=== PATIENT | male | born 1975 | race Hispanic/Latino ===

== ENCOUNTER 2017-08-30 15:53 | Inpatient (IN) | payer OTHER, SELFPAY ==
[~2017-08-30 15:53] MED LIST: Heparin 1,000 UNITS/ML VIAL ONE
[2017-08-30] MEDS ORDERED: Acetaminophen 325 MG TAB PO PRN (16:18)
[2017-08-30] MEDS ORDERED: HYDROcodone/Acetaminophen 5/325 mg Tablet PO PRN (16:18)
[2017-08-30] MEDS ORDERED: Ondansetron HCl/PF 4 MG/2 ML Vial IVP PRN (16:18)
[2017-08-30] MEDS ORDERED: Bisacodyl 5 MG TAB PO PRN (16:18)
[2017-08-30] MEDS ORDERED: Ondansetron ODT 4 MG TAB PO PRN (16:18)
[2017-08-30] MEDS ORDERED: Acetaminophen 650 MG Suppository PR PRN (16:18)
[2017-08-30] MEDS ORDERED: CEFAZOLIN 1 GM in Sodium Chloride 0.9% 100 ML IVPB SCH ×2 (16:30→22:00)
[2017-08-30] MEDS ORDERED: CEFAZOLIN 1 GM, Syringe 2.5 ML in Sterile Water 7.5 ML SLOW IVP SCH (16:45)
[2017-08-30 16:47] VITALS: BMI 37.3
[2017-08-30 16:52] LABS: #Eosinphils 0.2 thou/uL (0.0-0.7); #Lymphocytes 2.6 thou/uL (1.20-3.40); #Monocytes 0.6 thou/uL (0.11-0.59); %Basophils 0.7 % (0.0-1.0); %Eosinophils 2.6 % (0.0-10.0); %Lymphocytes 34.5 % (21.0-51.0); %Monocytes 8.1 % (0.0-10.0); %Neutrophils 54.1 % (42.0-75.0); Hemoglobin 14.1 g/dL (14.0-18.0); Mean Corpuscular HGB CONC 32.3 g/dL (32.0-36.0); Mean Corpuscular Hemoglobin 27.9 pg (27.0-31.0); Mean Corpuscular Volume 86.6 fl (80.0-94.0); Mean Platelet Volume 7.5 fL (7.4-10.4); Platelet Count 504 thou/uL (130-400); RBC Distribution Width 12.8 % (11.5-14.5); Red Blood Cell (RBC) Count 5.05 mill/uL (4.70-6.10); White Blood Cell (WBC) Count 7.4 thou/uL (4.8-10.8)
[2017-08-30 17:11] LABS: ALT (SGPT) 36 U/L (8-55); AST (SGOT) 23 U/L (5-34); Albumin 4.2 g/dL (3.5-5.0); Alkaline Phosphatase 183 U/L (40-150); Anion Gap 14 mmol/L (10-20); BUN (Urea Nitrogen) 21 mg/dL (8.9-20.6); Bilirubin, Total 0.4 mg/dL (0.2-1.2); Calc. Creatinine Clearance 155 mL/min (70-130); Calcium 9.9 mg/dL (7.8-10.44); Carbon Dioxide 24 mmol/L (22-29); Chloride 104 mmol/L (98-107); Estimated GFR-MDRD 81; Globulin 4.8 g/dL (2.4-3.5); Glucose 93 mg/dL (70-105); Sodium 138 mmol/L (136-145)
[2017-08-30 18:17] LABS: HBCM Index 0.09 S/CO (0-0.79); HBSAg Index 0.17 S/CO (0-0.99); Hep A IgM AB Non-Reactive (NonReactive); Hep A IgM S/CO 0.09 S/CO (0-0.79); Hep B Surf Ag Non-Reactive S/CO (NonReactive); Hep C IgG Ab Non-Reactive (NonReactive); Hep C Index 0.09 S/CO (0-0.79); Hepatitis B Core IGM Abs Non-Reactive (NonReactive)
--- NOTE | 2017-08-30 19:37 | MRI ---
MRI THORACIC SPINE NONCONTRAST: 08/30/17 HISTORY: Bacteremia, back pain. FINDINGS: Centered at the T7 and T8 segments, there is abnormal marrow edema, diffusely involving the vertebral bodies. There is no intervening disc space fluid. No significant, associated mass effect upon the th oracic spinal cord at this level. There is limited evaluation for potential epidural abscess by nonco ntrast technique, although no obvious space occupying epidural process is identified within the limit ations of noncontrast technique. There is paraspinus soft tissue edema, notably about the anterior as pect of the spinal column. There are multifocal subcentimeter T2 hyperintensities along the periphera l confines of the abnormal T7 and T8 vertebral bodies favoring microabscess formation, although limit ed by technique. Incomplete assessment of the narrow edema centered at the superior aspect of C7. Incidental note of patchy alveolar opacity of the medial right lung, incompletely evaluated. No abnormal intrinsic, expansile lesion of the thoracic spinal cord. No definite intramedullary signa l abnormality is identified. Mild multilevel degenerative change of thoracic spine present with mild resultant effacement of ventral thecal sac due to multilevel disc bulge formation. There is intrinsic T1 hyperintensity of T5 vertebral body, which may relate to a small hemangioma. IMPRESSION: Findings compatible with osteomyelitis at the T7 and T8 segments. No intervening disc space fluid pre sent. No obvious epidural mass effect although evaluation for potential developing epidural abscess i s limited by noncontrast technique. There are multifocal paraspinous, subcentimeter T2 hyperintensiti es favoring microabscess formation, notably about the peripheral confines of the abnormal marrow sign al of T7 and T8 vertebral bodies. There is also paraspinous edema. Abnormal patchy alveolar opacity of the medial right lung is incompletely assessed. Incidental note of T2 hyperintensity of the superior aspect of C7 incompletely evaluated. POS: [facility]
--- NOTE | 2017-08-30 19:44 | MRI ---
LUMBAR SPINE MRI NONCONTRAST: 08/30/17 CLINICAL HISTORY: Bacteremia, back pain. FINDINGS: No acute marrow edema of lumbar spine. No compression deformity or subluxation. No acute disc space e neri/fluid. Conus medullaris is grossly unremarkable. There are foci of susceptibility at the posteri or subcutaneous tissues of the lower lumbar spine. Multilevel disc osteophyte/disc bulge formation pr esent. There is no motion artifact which limits assessment. There is congenital AP diameter narrowing of the mid to lower lumbar spine due to shortened pedicles with an overall moderate multilevel centr al canal stenosis. Neural foramina are somewhat obscured by the patient motion although there is sugg estion of multilevel mild to moderate foraminal narrowing on the basis of degenerative change. Multil evel degenerative facet hypertrophy is present. IMPRESSION: 1. No noncontrast MR evidence of osteomyelitis or discitis of the lumbar spine. 2. 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 Degenerative changes are mild to moderate in degree, although are limited by the degre e of patient motion. POS: [facility]
--- NOTE | 2017-08-30 21:47 | HP ---
PRIMARY CARE PHYSICIAN: Roman Newby. CHIEF COMPLAINT: Back pain and bacteremia. HISTORY OF PRESENT ILLNESS: This is a 42-year-old male without significant past medical his tory who presents with a 3-4 week history of mid back pain. He reports that in the middle of July, he woke up with this pain, went into his primary care doctor's office, had a temperature of 100.7 at that time and was put on pain medications. The pain continued to be bad. He has had some chills and felt febrile. The patient eventually went into the emergency room in [place] on 08/13/2017 about 1 7 days ago. At that time, the patient was given Toradol and pain medications for his back. He did s pike a fever to 102 in the emergency room, they did a CT of the chest with contrast at that time. Th is noted a mild right pleural effusion, but no other findings. There were no osseous structures abno rmalities. The patient had blood cultures drawn, was noted to have a white blood cell count about 10 ,000 and some elevations in AST, ALT, alkaline phosphatase. He was sent home with pain medications. Blood cultures did eventually grow back MSSA, pansensitive staph. He was scripted for clindamycin 3 times a day for 7 days was called into him and he will follow up with his primary care doctor. Due to the pleural effusion, the patient did have a referral down to a merchant seaman in the [facility] yesterday. He had an x-ray done there and determined that he did not have a signif icant pulmonary disease causing this problem. He was then referred to Dr. Torres. He saw Dr. Brian canas n the clinic today and Dr. Torres sent him over for direct admission. PAST MEDICAL HISTORY: None. PAST SURGICAL HISTORY: 1. Carpal tunnel surgery. 2. Right L3-L4 hemilaminectomy and diskectomy done in 2012. SOCIAL HISTORY: The patient has smoked a pack per day for the last 22 years. He used to drink alcoh ol heavily until about 11 to 12 years ago. He drinks just 1-2 beers about once or twice a month now. He does intermittently use amphetamines. Orally, he has never used any IV drugs. He lives with ak s girlfriend to 15 years and with his father who is significantly disabled from diabetes. PSYCHIATRIC HISTORY: The patient does report some stress and depression, but no past psychiatric irena gnoses. FAMILY HISTORY: Multiple family members with diabetes and hypertension. No history of heart disease or immune problems. ALLERGIES: Unknown allergy pill from years ago. No other known allergies. MEDICATIONS: An [id number] pain medication that he gets from some friends from [place]. No oth er regular medications. No antibiotics for 1 week. REVIEW OF SYSTEMS: Constitutional: Fevers and chills initially, after he had a course of clindamyci n he has not had any more fevers. Eyes: No double vision or blurred vision. ENT: No congestion, d rainage or sore throat. Pulmonary: He has a chronic intermittent cough from smoking that does not a ny worse recently, nonproductive of sputum. He has had no trouble breathing or wheezing. Cardiovasc ular: No chest pain, no palpitations or racing heart. Gastrointestinal: The patient has had some b ilateral right and left upper quadrant pain, sharp, on and off, not they are consistently, seemed to be worse right at the initial time of this back pain and fever. No nausea or vomiting, no diarrhea o r constipation. He has had some intermittent blood with his bowel movements that is bright red for t he past few years. Genitourinary: No dysuria or hematuria. Musculoskeletal: The patient does have the back pain, it is more lateral, right and left side down near the lower side and his ribcage, wor se with some positions and movement, but it is intermittent, seems better with the medicine he has be en taking over the counter. No other muscle aches or joint pains. Skin: No rashes or lesions noted . Neurologic: He has some bilateral fingertip numbness and tingling when he first got sick, this is resolved and he has not had any more since then. No other focal neurologic symptoms that he has had . PHYSICAL EXAMINATION: VITAL SIGNS: Blood pressure 144/91, temperature 98.2, pulse 100, respirations 18, O2 saturation 98% on room air. GENERAL: This is a well-developed, obese male in no apparent distress. HEENT: Pupils are equal, round, and reactive to light. Extraocular movements are intact. Oropharyn x is clear without lesions, erythema or exudate. NECK: Supple, no lymphadenopathy, no thyroid nodules or enlargement, no JVD. HEART: Regular rate and rhythm, no murmurs, rubs or gallops. LUNGS: Clear to auscultation bilaterally, no wheezes, crackles or rhonchi. MUSCULOSKELETAL: No tenderness to palpation of his ribcage even over the areas where he has the pain in his back. ABDOMEN: Soft, mild tenderness to palpation in bilateral upper quadrants, worse over his liver. Neg ative Obrien sign. No organomegaly or masses. Normoactive bowel sounds. EXTREMITIES: No clubbing, cyanosis or edema. SKIN: No rashes or lesions noted. NEUROLOGIC: Deep tendon reflexes 2+ in all extremities and sensation intact in all extremities, has 5/5 strength in all extremities and no facial droop. LABORATORY DATA: Done just now in the hospital. A CBC is normal except for platelet count of 500,00 0. Complete metabolic panel was notable for a BUN of 21 and alkaline phosphatase of 183. Serum tota l protein of 9. The rest of his LFTs have actually normalized since his last visit. His C-reactive protein is elevated at 1.62. ASSESSMENT AND PLAN: 1. Methicillin-sensitive Staphylococcus aureus bacteremia. The differential for sources of this is large, most likely candidates that would be endocarditis or spinal infection given his back pain. Th is could be radicular symptoms coming from a problem in his thoracic spine. We will repeat blood cul tures here today and then start Ancef 2 grams IV 3 times a day. We will also get an MRI of the T and L spines and an echocardiogram and start the workup. Dr. Torres will see the patient in the hospital and we will follow any further recommendations that he has for workup and treatment here. The patie nt will eventually need a PICC line once his blood is no longer positive for bacteria. 2. Obesity. 3. Elevated blood pressure. We will monitor these in the hospital, it is possible that he does have some early hypertension and may need treatment. 4. Elevated liver function tests. These are actually mostly resolved now. Uncertain etiology, thou gh it may be related more to bony involvement of an infection with his alkaline phosphatase elevation . Given his tenderness in the right upper quadrant, though I will go ahead and get an ultrasound of his liver and will check viral hepatitis panels. 5. Gastrointestinal prophylaxis. We will put the patient is on Pepcid twice a day. 6. Deep venous thrombosis prophylaxis. We will put the patient on sequential compression devices an d Shereenox. CODE STATUS: I did discuss this with the patient and he stated he is a FULL CODE. Should he be inca pacitated, he stated that his aunt, no one to make medical decisions for him that would be, her name is Ibis Payan, she is his paternal aunt.
[2017-08-30] MEDS ORDERED: CEFAZOLIN 2 GM in Sodium Chloride 0.9% 100 ML IVPB SCH (22:00)
[2017-08-30] MEDS: Famotidine 20 MG TAB PO SCH (22:19)
[2017-08-30] MEDS: CEFAZOLIN/Water 2 GM/20 ML SYRINGE SLOW IVP SCH (22:20)
[2017-08-30] MEDS: Docusate 100 MG CAP PO SCH (22:20)
[2017-08-30] MEDS: HYDROcodone/Acetaminophen 5/325 mg Tablet PO PRN (22:23)
[2017-08-31] MEDS: HYDROcodone/Acetaminophen 5/325 mg Tablet PO PRN ×4 (07:06→21:10)
[2017-08-31] MEDS: CEFAZOLIN/Water 2 GM/20 ML SYRINGE SLOW IVP SCH ×3 (07:07→21:11)
[2017-08-31 07:56] LABS: #Basophils 0.1 thou/uL (0.0-0.2); #Eosinphils 0.3 thou/uL (0.0-0.7); #Lymphocytes 2.5 thou/uL (1.20-3.40); #Monocytes 0.5 thou/uL (0.11-0.59); #Neutrophils 2.8 thou/uL (1.40-6.50); %Basophils 0.9 % (0.0-1.0); %Eosinophils 4.4 % (0.0-10.0); %Lymphocytes 41.4 % (21.0-51.0); %Monocytes 8.1 % (0.0-10.0); %Neutrophils 45.2 % (42.0-75.0); Hemoglobin 13.4 g/dL (14.0-18.0); Mean Corpuscular HGB CONC 30.8 g/dL (32.0-36.0); Mean Corpuscular Hemoglobin 27.1 pg (27.0-31.0); Platelet Count 445 thou/uL (130-400); RBC Distribution Width 12.8 % (11.5-14.5); Red Blood Cell (RBC) Count 4.94 mill/uL (4.70-6.10); White Blood Cell (WBC) Count 6.1 thou/uL (4.8-10.8)
--- NOTE | 2017-08-31 07:56 | ULT ---
RIGHT UPPER QUADRANT ULTRASOUND: HISTORY: Right upper quadrant pain, tenderness, increased LFTs, right flank pain. FINDINGS: The liver demonstrates increased echogenicity consistent with fatty infiltration. No focal mass or i ntrahepatic ductal dilatation is seen. No gallstones, gallbladder wall thickening, or pericholecysti c fluid is identified. The common duct measures 4 mm in diameter. The pancreas is not satisfactoril y visualized due to overlying bowel gas. The right kidney is unremarkable. No free fluid is seen in the Morison's pouch. IMPRESSION: 1. Fatty liver. 2. No evidence of cholelithiasis. POS: [facility]
[2017-08-31 08:13] LABS: Anion Gap 13 mmol/L (10-20); BUN (Urea Nitrogen) 18 mg/dL (8.9-20.6); Calc. Creatinine Clearance 184 mL/min (70-130); Calcium 9.4 mg/dL (7.8-10.44); Carbon Dioxide 26 mmol/L (22-29); Chloride 103 mmol/L (98-107); Estimated GFR-MDRD Greater than 90; Glucose 82 mg/dL (70-105); Potassium 3.9 mmol/L (3.5-5.1); Sodium 138 mmol/L (136-145)
[2017-08-31] MEDS: Enoxaparin Sodium 40 MG/0.4 ML SYRINGE SC SCH (09:07)
[2017-08-31] MEDS: Famotidine 20 MG TAB PO SCH ×2 (09:07→21:10)
[2017-08-31] MEDS: Docusate 100 MG CAP PO SCH ×2 (09:07→21:10)
[2017-08-31] MEDS ORDERED: Eucerin (Mineral Oil/Petrolatum,White) 30 gm Jar TOP PRN (09:18)
[2017-08-31] MEDS ORDERED: Mag-Al 1200 mg/1200 mg/30 ML UDCUP PO PRN (09:18)
[2017-08-31] MEDS ORDERED: Artificial Tears 18 DROP/0.9 ML EA EYE PRN (09:18)
[2017-08-31] MEDS ORDERED: Temazepam 15 MG CAP PO PRN (09:18)
[2017-08-31] MEDS ORDERED: Chloraseptic Spray 180 ml Bottle PO PRN (09:18)
[2017-08-31] MEDS ORDERED: Sodium Chloride 0.65% Nasal 44 ML BOT EA NARE PRN (09:18)
[2017-08-31] MEDS ORDERED: Milk Of Magnesia 30 ML UDCUP PO PRN (09:18)
[2017-08-31] MEDS ORDERED: hydrALAZINE 20 MG/ML VIAL SLOW IVP PRN (09:18)
[2017-08-31] MEDS ORDERED: Loperamide HCl 2 MG CAP PO PRN (09:18)
[2017-08-31] MEDS ORDERED: Diabetic Tussin 200 MG/10 ML UDCUP PO PRN (09:18)
[2017-08-31] MEDS ORDERED: Loratadine 10 MG TAB PO PRN (09:18)
--- NOTE | 2017-08-31 09:19 | PDOC.PN ---
- Subjective Encounter Start Date: 08/31/17 Encounter Start Time: 10:00 -: old records requested/rev Patient seen and examined. No new complaints. No overnight events has upper back pain - Objective Resuscitation Status: Resuscitation Status FULL:Full Resuscitation MAR Reviewed: Yes Vital Signs & Weight: Vital Signs (12 hours) Temp Pulse Resp BP Pulse Ox 08/31/17 07:28 97.8 F 79 16 138/91 H 98 08/31/17 04:00 98.4 F 70 18 131/84 99 08/31/17 00:00 98.4 F 87 16 129/80 98 Weight Weight 253 lb Result Diagrams: 08/31/17 03:30 08/31/17 03:30 Radiology Reviewed by me: Yes (MRI) Phys Exam - Physical Examination Constitutional: NAD HEENT: PERRLA, moist MMs, sclera anicteric Neck: no JVD, supple Respiratory: no wheezing, no rales, no rhonchi Cardiovascular: RRR, no significant murmur, no rub Gastrointestinal: soft, non-tender, no distention, positive bowel sounds Musculoskeletal: no edema, pulses present Neurological: non-focal, normal sensation Lymphatic: no nodes Psychiatric: normal affect Skin: no rash, normal turgor Dx/Plan (1) Bacteremia due to methicillin susceptible Staphylococcus aureus (MSSA) Code(s): R78.81 - BACTEREMIA Status: Acute (2) Osteomyelitis of thoracic spine Code(s): M46.24 - OSTEOMYELITIS OF VERTEBRA, THORACIC REGION Status: Acute (3) Obesity (BMI 30-39.9) Code(s): E66.9 - OBESITY, UNSPECIFIED Status: Chronic - Plan cont current plan of care, continue antibiotics, social sciences research scientist * continue cefazolin * echo will be done today * neurosurgeon consult * ID consulted * will need PICC line and long tern IV antibiotics * will need brace * medication reviewed as below * symptomatic treatment. Review of Systems - Review of Systems Eyes: negative: Pain, Vision Change, Conjunctivae Inflammation, Eyelid Inflammation, Redness, Other ENT: negative: Ear Pain, Ear Discharge, Nose Pain, Nose Discharge, Nose Congestion, Mouth Pain, Mouth Swelling, Throat Pain, Throat Swelling, Other Respiratory: negative: Cough, Dry, Shortness of Breath, Hemoptysis, SOB with Excertion, Pleuritic Pain, Sputum, Wheezing Cardiovascular: negative: chest pain, palpitations, orthopnea, paroxysmal nocturnal dyspnea, edema, light headedness, other Gastrointestinal: negative: Nausea, Vomiting, Abdominal Pain, Diarrhea, Constipation, Melena, Hematochezia, Other Musculoskeletal: Back Pain. negative: Neck Pain, Shoulder Pain, Arm Pain, Hand Pain, Leg Pain, Foot Pain, Other Skin: negative: Rash, Lesions, Danielito, Bruising, Other - Medications/Allergies Allergies/Adverse Reactions: Allergies Allergy/AdvReac Type Severity Reaction Status Date / Time No Known Allergies Allergy Unverified 01/22/13 11:05 Medications: Current Medications Acetaminophen (Tylenol) 650 mg PO Q4H PRN PRN Reason: Headache/Fever or Pain Acetaminophen (Tylenol) 650 mg NH Q4H PRN PRN Reason: Headache/Fever or Pain Hydrocodone Bitart/Acetaminophen (Gwynn 5/325) 1 tab PO Q4H PRN PRN Reason: Moderate Pain (4-6) Hydrocodone Bitart/Acetaminophen (Gwynn 5/325) 2 tab PO Q4H PRN PRN Reason: Severe Pain (7-10) Last Admin: 08/31/17 07:06 Dose: 2 tab Bisacodyl (Dulcolax) 10 mg PO DAILYPRN PRN PRN Reason: Constipation Cefazolin Sodium (Ancef) 2 gm SLOW IVP Q8HR [facility] Last Admin: 08/31/17 07:07 Dose: 2 gm Docusate Sodium (Colace) 100 mg PO BID [facility] Last Admin: 08/31/17 09:07 Dose: 100 mg Enoxaparin Sodium (Lovenox) 40 mg SC 0900 [facility] Last Admin: 08/31/17 09:07 Dose: 40 mg Famotidine (Pepcid) 20 mg PO BID [facility] Last Admin: 08/31/17 09:07 Dose: 20 mg Ondansetron HCl (Zofran Odt) 4 mg PO Q6H PRN PRN Reason: Nausea/Vomiting Ondansetron HCl (Zofran) 4 mg IVP Q6H PRN PRN Reason: Nausea/Vomiting
--- NOTE | 2017-08-31 12:05 | CT ---
CT THORACIC SPINE: TECHNIQUE: Axial images are obtained with coronal and sagittal reconstructions. FINDINGS: CT images demonstrate areas of some lucency with destruction of the inferior end plate of T7 anterior ly. There is also some slight irregularity involving the superior end plate of T8 again anteriorly. This correlates with the patient's marrow signal changes seen in the T7 and T8 vertebral levels. No significant evidence of pedicle or posterior element abnormality seen. No significant evidence of s ignificant central posterior osteophyte seen in the thoracic spine. Anterior and somewhat lateral mi d and lower thoracic osteophyte seen. IMPRESSION: Areas of end plate breakdown at the inferior anterior aspect of T7 and anterior superior aspect of th e T8 vertebral levels. POS: [facility]
--- NOTE | 2017-08-31 16:16 | PRG ---
DATE OF SERVICE: 08/31/2017 This is a 30-minute initial hospital visit note in which 30 minutes were spent in review of the imagi ng record, evaluation and examination of patient, and formulation of a plan. Greater than 50% of the time was spent in counseling on Mr. Emmanuel Briones. CHIEF COMPLAINT: T7-T8 osteomyelitis, Staphylococcus. SUBJECTIVE: Mr. Briones is a 42-year-old man known to me approximately 5 years ago. I did a lumbar d ecompression. He did well following this; however, he presented with mid thoracic pain. MRI demonst rates edema in the vertebral bodies at T7-T8 with very mild inferior of T7 and superior T8 endplate l oss. CT confirms this with some erosion. There is no epidural abscess. Lumbar spine imaging MRI is unremarkable. OBJECTIVE: On exam, he is neurologically intact. IMPRESSION AND PLAN: For the patient, the treatment here will be a TLSO clamshell brace, which we wi ll order and this should be worn whenever he is out of bed, likely for the next 6-12 weeks. He will continue with guided antibiotics based on the microbe and we will arrange follow up in my clinic in 6 weeks with upright AP and lateral thoracic spine x-rays. DIAGNOSIS: Mid thoracic osteomyelitis.
[2017-08-31 19:36] VITALS: TEMP 97.8
--- NOTE | 2017-08-31 23:08 | CON ---
DATE OF CONSULTATION: 08/31/2017 This is a followup note from clinic visit. HISTORY OF PRESENT ILLNESS: A 42-year-old gentleman who has a history of prior lumbosacral laminecto my in the past and showed up in my clinic referred from another doctor's office because of Staphyloco ccus aureus bacteremia, which was identified about 10 days before his visit to my office, had been pr escribed clindamycin. On arrival, he complained of quite significant pain in the lower mid thoracic region with radiculopathic spread towards the anterior parts of the chest and upper abdomen associate d with general malaise, myalgias, symptoms had improved somewhat after he started clindamycin. No he adaches, no visual symptoms, sore throat, odynophagia, dysphagia. No skin disorder. No abdominal pa in, no diarrhea, no hematemesis, melena, hematochezia. No joint symptoms outside the area of involve ment. PAST MEDICAL HISTORY: Does not show any significant findings except for the prior lumbosacral spine treatment with I believe was a laminectomy. ALLERGIES: His allergy history is negative. 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 Lives close to [place]. Never smoker, no drug use. FAMILY HISTORY: Noncontributory. CURRENT MEDICATIONS: Tylenol, [place], Maalox, cefazolin 2 grams q.8 hours, hydralazine, and ondansetr on. PHYSICAL EXAMINATION: VITAL SIGNS: T-max 98.4, blood pressure 130/90, pulse 79, respirations 16, O2 sat 98%. SKIN: Normal. No lymphadenopathy. HEENT: Noncontributory. LUNGS: Clear. HEART: S1, S2, regular rate and rhythm without murmurs. ABDOMEN: Soft, not distended or tender, no ascites. No bladder distention. Mild tenderness in the mid thoracic spine area. EXTREMITIES: No joint inflammatory activity. No edema. Pulses 1+ in dorsalis pedis. Moves all ext remities equally. NEUROLOGIC: Cognitive function appears to be intact. LABORATORY DATA: White cell count 7.4, hemoglobin 14, platelets 504 with normal differential and cre atinine 1.01. CRP 1.62, albumin 4.2. Thoracic spine MRI, abnormal marrow edema diffusely involving the vertebral bodies, no disk space fluid, no mass effect, no obvious space occupying epidural proces s identified. There is evidence of paraspinous soft tissue edema, multifocal subcentimeter, T2 hyper intensities along peripheral confines of the vertebral bodies. The patient has thoracic spine CT, wh ich showed areas of endplate breakdown in the inferior anterior aspect of T7, anterior superior aspec t of T8 vertebral bodies. Dr. Clements has evaluated the patient. ASSESSMENT: Staph aureus bacteremia with thoracic spine osteomyelitis with T7 and T8 diskitis. The patient will be transitioned to Rocephin for discharge planning 2 grams daily for 6-8 weeks, probably 8 weeks. We have to arrange with case planner since he does not have insurance, will probably have to come daily to the hospital here for administration of medication. PICC line insertion. Check 2D echocardiogram.
[2017-09-01] MEDS: CEFAZOLIN/Water 2 GM/20 ML SYRINGE SLOW IVP SCH ×2 (05:32→15:13)
[2017-09-01] MEDS: HYDROcodone/Acetaminophen 5/325 mg Tablet PO PRN ×2 (05:35→13:34)
[2017-09-01 07:50] VITALS: BP 154/92
[2017-09-01 07:55] LABS: Prothrombin Time 13.3 SEC (12.0-14.7)
[2017-09-01] MEDS: Docusate 100 MG CAP PO SCH (08:49)
[2017-09-01] MEDS: Enoxaparin Sodium 40 MG/0.4 ML SYRINGE SC SCH (08:49)
[2017-09-01] MEDS: Famotidine 20 MG TAB PO SCH (08:49)
--- NOTE | 2017-09-01 10:59 | PDOC.PN ---
- Subjective Encounter Start Date: 09/01/17 Encounter Start Time: 08:00 Patient seen and examined. No new complaints. No overnight events - Objective Resuscitation Status: Resuscitation Status FULL:Full Resuscitation MAR Reviewed: Yes Vital Signs & Weight: Vital Signs (12 hours) Temp Pulse Resp BP Pulse Ox 09/01/17 08:00 97.8 F 73 20 96 09/01/17 07:50 97.8 F 73 20 154/92 H 90 L Weight Weight 253 lb I&O: 08/31/17 09/01/17 09/02/17 06:59 06:59 06:59 Intake Total 1780 200 Balance 1780 200 Result Diagrams: 08/31/17 03:30 08/31/17 03:30 Phys Exam - Physical Examination Constitutional: NAD HEENT: PERRLA, moist MMs, sclera anicteric Neck: no JVD, supple Respiratory: no wheezing, no rales, no rhonchi Cardiovascular: RRR, no significant murmur, no rub Gastrointestinal: soft, non-tender, no distention, positive bowel sounds Musculoskeletal: no edema, pulses present Neurological: non-focal, normal sensation, moves all 4 limbs Lymphatic: no nodes Psychiatric: normal affect, A&O x 3 Skin: no rash, normal turgor Dx/Plan (1) Bacteremia due to methicillin susceptible Staphylococcus aureus (MSSA) Code(s): R78.81 - BACTEREMIA Status: Acute (2) Osteomyelitis of thoracic spine Code(s): M46.24 - OSTEOMYELITIS OF [place], THORACIC REGION Status: Acute (3) Obesity (BMI 30-39.9) Code(s): E66.9 - OBESITY, UNSPECIFIED Status: Chronic - Plan cont current plan of care, continue antibiotics, psychosocial rehabilitation counselor * continue IV rocephin after discharge as per ID * currently on cefazolin * medication reviewed as below * symptomatic treatment * today PICC line * social work for outpt IV antibiotics. Review of Systems - Review of Systems Constitutional: negative: fever, chills, sweats, weakness, malaise, other Eyes: negative: Pain, Vision Change, Conjunctivae Inflammation, Eyelid Inflammation, Redness, Other ENT: negative: Ear Pain, Ear Discharge, Nose Pain, Nose Discharge, Nose Congestion, Mouth Pain, Mouth Swelling, Throat Pain, Throat Swelling, Other Respiratory: negative: Cough, Dry, Shortness of Breath, Hemoptysis, SOB with Excertion, Pleuritic Pain, Sputum, Wheezing Cardiovascular: negative: chest pain, palpitations, orthopnea, paroxysmal nocturnal dyspnea, edema, light headedness, other Gastrointestinal: negative: Nausea, Vomiting, Abdominal Pain, Diarrhea, Constipation, Melena, Hematochezia, Other Genitourinary: negative: Dysuria, Frequency, Incontinence, Hematuria, Retention , Other Musculoskeletal: Back Pain. negative: Neck Pain, Shoulder Pain, Arm Pain, Hand Pain, Leg Pain, Foot Pain, Other Skin: negative: Rash, Lesions, Danielito, Bruising, Other Neurological: negative: Weakness, Numbness, Incoordination, Change in Speech, Confusion, Seizures, Other - Medications/Allergies Allergies/Adverse Reactions: Allergies Allergy/AdvReac Type Severity Reaction Status Date / Time No Known Allergies Allergy Unverified 01/22/13 11:05 Medications: Current Medications Acetaminophen (Tylenol) 650 mg PO Q4H PRN PRN Reason: Headache/Fever or Pain Acetaminophen (Tylenol) 650 mg GA Q4H PRN PRN Reason: Headache/Fever or Pain Hydrocodone Bitart/Acetaminophen ([place] 5/325) 1 tab PO Q4H PRN PRN Reason: Moderate Pain (4-6) Hydrocodone Bitart/Acetaminophen ([place] 5/325) 2 tab PO Q4H PRN PRN Reason: Severe Pain (7-10) Last Admin: 09/01/17 05:35 Dose: 2 tab Al Hydroxide/Mg Hydroxide (Maalox) 15 ml PO Q4H PRN PRN Reason: Heartburn or Indigestion Artificial Tears (Tears Naturale) 0 drop EA EYE PRN PRN PRN Reason: Dry Eyes Bisacodyl (Dulcolax) 10 mg PO DAILYPRN PRN PRN Reason: Constipation Cefazolin Sodium (Ancef) 2 gm SLOW IVP Q8HR [facility] Last Admin: 09/01/17 05:32 Dose: 2 gm Docusate Sodium (Colace) 100 mg PO BID [facility] Last Admin: 09/01/17 08:49 Dose: 100 mg Enoxaparin Sodium (Lovenox) 40 mg SC 0900 [facility] Last Admin: 09/01/17 08:49 Dose: Not Given Famotidine (Pepcid) 20 mg PO BID [facility] Last Admin: 09/01/17 08:49 Dose: 20 mg Guaifenesin (Robitussin Sf) 200 mg PO Q4H PRN PRN Reason: Cough Hydralazine HCl (Apresoline) 10 mg SLOW IVP Q4H PRN PRN Reason: Systolic BP > 180 Loperamide HCl (Imodium) 2 mg PO PRN PRN PRN Reason: Diarrhea/Loose Stools Loratadine (Claritin) 10 mg PO DAILYPRN PRN PRN Reason: Sinus Symptoms Magnesium Hydroxide (Milk Of Magnesium) 30 ml PO DAILYPRN PRN PRN Reason: Constipation Mineral Oil/White Petrolatum (Eucerin Cream) 0 gm TOP BIDPRN PRN PRN Reason: Dry Skin Ondansetron HCl (Zofran Odt) 4 mg PO Q6H PRN PRN Reason: Nausea/Vomiting Ondansetron HCl (Zofran) 4 mg IVP Q6H PRN PRN Reason: Nausea/Vomiting Phenol (Chloraseptic [place] 180 Ml Bot) 0 ml PO PRN PRN PRN Reason: Sore Throat Sodium Chloride (Magazine Nasal [place] 0.65%) 0 ml EA NARE QIDPRN PRN PRN Reason: Nasal Congestion Sodium Chloride (Flush - Normal Saline) 10 ml IVF Q12HR [facility] Last Admin: 09/01/17 08:49 Dose: 10 ml Sodium Chloride (Flush - Normal Saline) 10 ml IVF PRN PRN PRN Reason: Saline Flush Temazepam (Restoril) 15 mg PO HSPRN PRN PRN Reason: Insomnia
--- NOTE | 2017-09-01 11:34 | SPC ---
PICC PLACEMENT ULTRASOUND GUIDED VENOUS ACCESS: (Peripherally Inserted Central Catheter) DATE: 09/01/17. HISTORY: A 42-year-old male with infectious spondylitis of the thoracic spine: diskitis-osteomyelitis, requiri ng long-term IV antibiotics. TECHNIQUE: Catheter caliber: 5 Lao. Catheter trim length: 43.5 cm. Catheter lumen number: single. Catheter tip location: lower portion of superior vena cava. Vein accessed: left brachial. Signed, informed consent was obtained. A tourniquet was applied at the proximal aspect of the arm. The arm was prepared and draped in the usual sterile fashion. A 25 gauge needle was used to apply bu ffered lidocaine superficially. The vein was punctured with a 21 gauge micropuncture needle under ul trasound guidance. A 0.018 inch guide wire was advanced through the micropuncture needle and into th e vein. Under fluoroscopic guidance, the guide wire was advanced to the right atrium. The PICC (per ipherally inserted central catheter) was flushed and trimmed to the appropriate length. The skin pun cture hole was widened with a blade. The micropuncture needle was exchanged over the guide wire for a 5 Lao peel-away dilator sheath. The dilator was exchanged over the guide wire for the PICC, whi ch was then further advanced under fluoroscopy. The sheath and guide wire were removed. The PICC wa s flushed again and secured in place at the arm. The patient tolerated the procedure well. There wa s no complication. IMPRESSION: Successful placement of PICC (peripherally inserted central catheter) reagan [] POS: UBALDO
--- NOTE | 2017-09-01 15:41 | DIS ---
DATE OF ADMISSION: 08/30/2017 DATE OF DISCHARGE: 09/01/2017 PRIMARY CARE PHYSICIAN: Roman Newby M.D. DISCHARGE DISPOSITION: Home. PRIMARY DISCHARGE DIAGNOSIS: Bacteremia due to methicillin-sensitive Staphylococcus aureus osteomyel itis of thoracic spine. SECONDARY DISCHARGE DIAGNOSIS: Obesity. PRIMARY PROCEDURE/OPERATION: PICC line. RADIOLOGICAL INVESTIGATION: Lumbar spine MRI was fine. Thoracic spine MRI showed osteomyelitis of T 7-T[address] spine[address] scan showed endplate breakdown at the inferior anterior aspect of T7 and T8. Abdominal ultrasound showed fatty liver. SIGNIFICANT LABORATORY DATA: WBC 6.1, hemoglobin 13.4, platelet 445. INR 1.0. ESR 97. Sodium 138, creatinine 0.85. CRP 1.62. Hepatitis profile negative. Blood culture negative. DISCHARGE MEDICATIONS: Rocephin 2 gram IV daily until 10/27/2017. The patient will have weekly CBC, CMP, CRP and follow up with Dr. Torres. CONTRAINDICATIONS: None. CODE STATUS: FULL CODE. INPATIENT CONSULTANTS: Dr. Torres was consulted while in hospital. Dr. Clements was consulted while in hospital. TEST RESULTS PENDING ON DISCHARGE: None. ALLERGIES: No known drug allergy. DISCHARGE PLAN: Post hospital, the patient will follow up with Dr. Torres and Dr. Clements as instructe d. HOSPITAL COURSE: A 42-year-old male who presented to emergency room on 08/13/2017. At that time, th e patient was having upper back pain. He had blood culture done. Subsequently, blood culture was po sitive and he was instructed to go to follow up with Dr. Torres and come to hospital. Dr. Torres sent him to the emergency room and he was admitted. During this admission, we did MRI lumbar spine which was normal. Thoracic spine showed osteomyelitis of T7-T8. The patient was needed to decline and IV antibiotic therapy. Dr. Torres recommended to continue with Rocephin 2 gram IV daily until 10/27/2017 . The patient will have weekly CBC, CMP, CRP. He will follow up with Dr. Torres and Dr. Clements as an outpatient basis. Dr. Clements was consulted while in hospital and they recommended brace therapy, wh ich was arranged with the [facility]. The patient is seen and examined at bedside today. Please see my progress note from today. Outpatie nt IV antibiotic therapy arranged by lining caser. The patient is stable for discharge today.
== END 2017-09-01 16:48 | disposition home or self-care (01) | DRG 540 ==
LOC: T4-A 15:53
PROVIDERS: ADMIT Internal Medicine Infectious Disease; ATTEND Internal Medicine Infectious Disease
PROC: 02HV33Z Insertion of Infusion Device into Superior Vena Cava, Percutaneous Approach (ICD-10-PCS; principal; 2017-09-01)
PROC: B548ZZA Ultrasonography of Superior Vena Cava, Guidance (ICD-10-PCS; 2017-09-01)
DX: M46.24 Osteomyelitis of vertebra, thoracic region (principal); R78.81 Bacteremia; E66.9 Obesity, unspecified; Z71.3 Dietary counseling and surveillance; Z68.37 Body mass index [BMI] 37.0-37.9, adult; F17.210 Nicotine dependence, cigarettes, uncomplicated; B95.61 Methicillin susceptible Staphylococcus aureus infection as the cause of diseases classified elsewhere; R79.89 Other specified abnormal findings of blood chemistry; I10 Essential (primary) hypertension
CPT/HCPCS: 36415; 36569; 72128; 72146; 72148; 76705; 80048; 80053; 80074; 85025; 85610; 85652; 86140; 87040; 93306; A4216; C1751; J0690; J1644; J1650; L0639

== ENCOUNTER 2017-10-11 10:10 | Outpatient (CLI) | payer OTHER ==
--- NOTE | 2017-10-11 10:54 | RAD ---
THORACIC SPINE THREE VIEWS: History: Back pain, osteomyelitis. Comparison: 08-31-17 CT examination. FINDINGS: The vertebral bodies maintain fairly normal height. Degenerative changes are seen along the course of the spine. It is difficult to appreciate the endplate changes seen at the T7-8 level on the previous CT examination. I do not see that there is any definite significant interval change. IMPRESSION: Arthritic changes of the spine. The endplate changes seen on CT are difficult to appreciate on plain film. POS: DIANNA
== END 2017-10-11 10:11 | disposition home or self-care (01) ==
LOC: TBSIIMAG 10:10
PROVIDERS: ATTEND Surgery
DX: M46.94 Unspecified inflammatory spondylopathy, thoracic region (principal)
CPT/HCPCS: 72072

== ENCOUNTER 2017-11-08 08:34 | Outpatient (CLI) | payer OTHER ==
--- NOTE | 2017-11-08 10:30 | RAD ---
THORACIC SPINE TWO VIEWS: HISTORY: Thoracic spine pain. COMPARISON: 10/11/2017 FINDINGS: Three views of the thoracic spine show normal height and alignment of the vertebral bodies without fr acture or subluxation. Small to moderate stable osteophytes are seen throughout the thoracic spine, more prominent inferiorly. IMPRESSION: Degenerative changes of the thoracic spine without acute osseous abnormality. POS: UBALDO
== END 2017-11-08 08:35 | disposition home or self-care (01) ==
LOC: TBSIIMAG 08:34
PROVIDERS: ATTEND Neurological Surgery
DX: M46.46 Discitis, unspecified, lumbar region (principal); M47.894 Other spondylosis, thoracic region
CPT/HCPCS: 72070

== ENCOUNTER 2018-04-17 16:06 | Inpatient (IN) | payer SELFPAY ==
[2018-04-17] MEDS ORDERED: Ondansetron PF 4 MG/2 ML Vial ONE (17:10)
[2018-04-17] MEDS ORDERED: Morphine 4 MG/ML VIAL ONE (17:21)
[2018-04-17 20:33] VITALS: BMI 38.8
[2018-04-17] MEDS ORDERED: Morphine 4 MG/ML VIAL SLOW IVP PRN (21:39)
[2018-04-17] MEDS ORDERED: Ondansetron ODT 4 MG TAB SL PRN (21:40)
[2018-04-17] MEDS ORDERED: Ondansetron PF 4 MG/2 ML Vial IVP PRN ×2 (21:40→23:36)
[2018-04-17] MEDS ORDERED: Acetaminophen 1,000 MG in Premix Bag 1 BAG IVPB PRN (21:40)
[2018-04-17] MEDS ORDERED: Sodium Chloride 0.9% 1,000 ML IV SCH (21:45)
[2018-04-17] MEDS ORDERED: Acetaminophen 325 MG TAB PO PRN (23:36)
[2018-04-18] MEDS: Sodium Chloride 0.9% 1,000 ML IV SCH ×2 (00:18→08:09)
[2018-04-18 05:18] LABS: #Eosinphils 0.1 thou/uL (0.0-0.7); #Lymphocytes 0.7 thou/uL (1.20-3.40); #Monocytes 0.6 thou/uL (0.11-0.59); #Neutrophils 6.8 thou/uL (1.40-6.50); %Basophils 0.2 % (0.0-1.0); %Eosinophils 0.7 % (0.0-10.0); %Lymphocytes 8.4 % (21.0-51.0); %Monocytes 7.8 % (0.0-10.0); %Neutrophils 82.9 % (42.0-75.0); Hemoglobin 14.6 g/dL (14.0-18.0); Mean Corpuscular HGB CONC 33.5 g/dL (32.0-36.0); Mean Corpuscular Hemoglobin 29.2 pg (27.0-31.0); Mean Corpuscular Volume 87.3 fL (78.0-98.0); Mean Platelet Volume 11.1 fL (7.4-10.4); Platelet Count 202 thou/uL (130-400); RBC Distribution Width 11.9 % (11.5-14.5); White Blood Cell (WBC) Count 8.2 thou/uL (4.8-10.8)
[2018-04-18 05:20] LABS: Anion Gap 11 mmol/L (10-20); BUN (Urea Nitrogen) 10 mg/dL (8.9-20.6); Calc. Creatinine Clearance 196 mL/min (70-130); Calcium 8.6 mg/dL (7.8-10.44); Carbon Dioxide 23 mmol/L (22-29); Chloride 103 mmol/L (98-107); Estimated GFR-MDRD Greater than 90; Glucose 83 mg/dL (70-105); Potassium 3.8 mmol/L (3.5-5.1); Sodium 133 mmol/L (136-145)
[2018-04-18] MEDS: Morphine 2 MG/ML SYRINGE SLOW IVP PRN ×2 (06:35→15:42)
[2018-04-18] MEDS: Famotidine/PF 20 mg/2ml Vial SLOW IVP SCH ×2 (08:09→20:53)
[2018-04-18] MEDS ORDERED: Prevnar 13-Val Conj/PF 0.5 ML SYRINGE IM ONE (09:00)
[2018-04-18] MEDS ORDERED: Bisacodyl 10 MG SUPP PR PRN (10:58)
[2018-04-18] MEDS: metroNIDAZOLE 500 MG in Premix Bag 1 BAG IVPB SCH ×2 (11:31→20:57)
--- NOTE | 2018-04-18 11:59 | PDOC.PN ---
- Subjective Encounter Start Date: 04/18/18 Encounter Start Time: 08:45 Subjective: c/o left quadrant abd pain, no nausea -: has cough but it hurts bad due to abd pain -: last bm was monday (usually goes daily) - Objective Resuscitation Status - Order Detail: 04/17/18 23:36 Resuscitation Status Routine Resuscitation Status: FULL: Full Resuscitation MAR Reviewed: Yes Vital Signs & Weight: Vital Signs (12 hours) Temp Pulse Resp BP BP Pulse Ox 04/18/18 11:29 98.6 F 86 18 130/80 97 04/18/18 07:56 98.3 F 101 H 18 128/88 97 04/18/18 04:00 99.1 F 99 20 129/78 94 L 04/18/18 01:28 100.0 F H 102 H 20 102/63 96 Weight Weight 263 lb I&O: 04/17/18 04/18/18 04/19/18 06:59 06:59 06:59 Intake Total 600 Balance 600 Result Diagrams: 04/18/18 04:25 04/18/18 04:25 Phys Exam - Physical Examination HEENT: PERRLA, moist MMs Neck: no JVD, supple Respiratory: no wheezing, no rales rhonchi+ Cardiovascular: RRR, no significant murmur Gastrointestinal: soft, positive bowel sounds tenderness left upper and lower quadrants, no rigidity or guarding Musculoskeletal: no edema, pulses present Neurological: non-focal, moves all 4 limbs Psychiatric: normal affect, A&O x 3 Dx/Plan (1) Acute diverticulitis Code(s): K57.92 - DVTRCLI OF INTEST, PART UNSP, W/O PERF OR ABSCESS W/O BLEED Status: Acute Comment: sigmoid (2) Sepsis Code(s): A41.9 - SEPSIS, UNSPECIFIED ORGANISM Status: Acute Qualifiers: Sepsis type: sepsis due to unspecified organism Qualified Code(s): A41.9 - Sepsis, unspecified organism (3) Obesity (BMI 30-39.9) Code(s): E66.9 - OBESITY, UNSPECIFIED Status: Chronic (4) Tobacco abuse Code(s): Z72.0 - TOBACCO USE Status: Chronic - Plan is on cipro, flagyl, full liq diet -: colace, miralax, suppository prn -: GI consultation -: gentle iv hydration * . Review of Systems - Medications/Allergies Allergies/Adverse Reactions: Allergies Allergy/AdvReac Type Severity Reaction Status Date / Time No Known Allergies Allergy Verified 04/17/18 20:08 Medications: Current Medications Acetaminophen (Tylenol) 650 mg PO Q4H PRN PRN Reason: Headache/Fever/Mild Pain (1-3) Albuterol Sulfate (Albuterol Sulfate) 1.25 mg NEB [id number] [facility] Bisacodyl (Dulcolax) [address] Q8H PRN PRN Reason: Constipation Docusate Sodium (Colace) 100 mg PO BID [facility] Famotidine (Pepcid) 20 mg SLOW IVP Q12HR [facility] Last Admin: 04/18/18 08:09 Dose: 20 mg Sodium Chloride (Normal Saline 0.9%) 1,000 mls @ 75 mls/hr IV .[id number] [facility] Last Admin: 04/18/18 08:09 Dose: 1,000 mls Ciprofloxacin/Dextrose 400 mg/ (Device) 200 mls @ 200 mls/hr IVPB 1200,2359 [facility] Last Admin: 04/18/18 11:31 Dose: 200 mls Metronidazole 500 mg/ Device 100 mls @ 100 mls/hr IVPB Q8HR [facility] Last Admin: 04/18/18 11:31 Dose: 100 mls Morphine Sulfate (Morphine) 2 mg SLOW IVP Q4H PRN PRN Reason: PAIN 7-10 Last Admin: 04/18/18 06:35 Dose: 2 mg Ondansetron HCl (Zofran) 4 mg IVP Q6H PRN PRN Reason: Nausea/Vomiting Polyethylene Glycol (Miralax) 17 gm PO DAILY [facility] Sodium Chloride (Flush - Normal Saline) 10 ml IVF PRN PRN PRN Reason: Saline Flush
[2018-04-18] MEDS: Albuterol Sulfate 1.25 MG/3 ML NEB NEB SCH ×2 (14:16→22:08)
[2018-04-18] MEDS: Docusate 100 MG CAP PO SCH (20:53)
--- NOTE | 2018-04-18 22:42 | CON ---
DATE OF CONSULTATION: 04/18/2018 REASON FOR CONSULTATION: Severe abdominal pain. HISTORY OF PRESENT ILLNESS: Mr. Briones is a 42-year-old male, who presented to the emergency room yesterday with a 4-day history of persistent diffuse abdominal pain, but worse in the lower abdominal area. He was doing fine up until the pain onset 5 days ago. Since that time, he has had unrelenting persistent abdominal pain described as dull, but without any radiation. He has not had a bowel movement over the last four days leading up to the abdominal pain. He did not have any change in bowel function or evidence of GI bleeding. He denies having any nausea or vomiting. He denies having any subjective fevers or chills at home. CT performed in the ER showed inflammatory changes involving the sigmoid colon without any phlegmon, fluid collection, or pneumatosis coli. Currently, he rates his pain as 6 out of 10. He had not any similar gastrointestinal problem. PAST MEDICAL HISTORY: MRSA; thoracic spine osteomyelitis in 08/2017, treated with 6 weeks of outpatient IV antibiotics. No other medical illness. Denies high blood pressure, diabetes, or coronary artery disease. ALLERGIES: NONE. MEDICATIONS: At home, none. SOCIAL HISTORY: The patient smokes a pack a day and frequent alcohol consumption. No illicit drug use. FAMILY HISTORY: Negative for any known GI problem, liver disease, or GI malignancy. REVIEW OF SYSTEMS: 10-point review of systems did not show any other pertinent positives or negatives. PHYSICAL EXAMINATION: VITAL SIGNS: Temperature is 98.6, blood pressure 130/80, and pulse of 86. GENERAL: He is alert, conversant, and in no distress. HEENT: Anicteric sclerae. Oropharynx clear. NECK: Supple. CV: Shows normal S1 and S2. Regular rate and rhythm. CHEST: Shows normal breath sounds. ABDOMEN: Protuberant, but soft. No distention. No tympany. He does have active bowel sounds. He does have diffuse tenderness, but most severe tenderness is in the suprapubic lower abdominal area. There is mild guarding, but no tensing or rebound. EXTREMITIES: Shows no edema. DIAGNOSTIC DATA: Abdominal CT showed thickening of sigmoid colon with surrounding inflammatory changes and fat stranding with focal area of ileus. No abscess, fluid collection, or phlegmon. LABORATORY DATA: WBC 8.0, hemoglobin 14.6, and platelet count of 202. Electrolytes were within normal range. LFTs were within normal range. Lipase is 8. ASSESSMENT: Uncomplicated sigmoid diverticulosis. CT did not show any abscess/phlegmon/fluid collection. His abdominal exam showed [id number] tenderness, but without peritoneal sign. The patient is without fever, leukocytosis, and does not appear to be toxic. RECOMMENDATIONS: 1. Agree with conservative management. 2. Continue with IV ciprofloxacin and metronidazole. 3. Close followup with belly labs and serial exams. 4. We will give osmotic laxatives as he had not had a bowel movement over the last 4 days, milk of magnesia for now. Job ID: [id number]
[2018-04-19] MEDS: Sodium Chloride 0.9% 1,000 ML IV SCH ×3 (00:16→17:54)
[2018-04-19] MEDS: metroNIDAZOLE 500 MG in Premix Bag 1 BAG IVPB SCH ×3 (05:24→22:17)
[2018-04-19] MEDS: Albuterol Sulfate 1.25 MG/3 ML NEB NEB SCH ×3 (07:39→18:49)
[2018-04-19] MEDS: Polyethylene Glycol 3350 17 GM Packet PO SCH (08:25)
[2018-04-19] MEDS: Famotidine/PF 20 mg/2ml Vial SLOW IVP SCH ×2 (08:25→20:03)
[2018-04-19] MEDS: Docusate 100 MG CAP PO SCH ×2 (08:26→20:03)
[2018-04-19] MEDS ORDERED: Milk Of Magnesia 30 ML UDCUP PO SCH (10:15)
--- NOTE | 2018-04-19 11:06 | PDOC.PN ---
- Subjective Encounter Start Date: 04/19/18 Encounter Start Time: 08:00 Subjective: abdominal pain is better -: is amb in room - Objective Resuscitation Status - Order Detail: 04/17/18 23:36 Resuscitation Status Routine Resuscitation Status: FULL: Full Resuscitation MAR Reviewed: Yes Vital Signs & Weight: Vital Signs (12 hours) Temp Pulse Resp BP Pulse Ox 04/19/18 08:00 94 L 04/19/18 07:39 85 16 95 04/19/18 07:31 98.0 F 79 18 130/87 94 L 04/19/18 04:58 98.3 F 04/19/18 00:00 99.2 F Weight Weight 263 lb I&O: 04/18/18 04/19/18 04/20/18 06:59 06:59 06:59 Intake Total 600 4390 Balance 600 4390 Result Diagrams: 04/18/18 04:25 04/18/18 04:25 Phys Exam - Physical Examination HEENT: PERRLA, moist MMs Neck: no JVD, supple Respiratory: no wheezing, no rales Cardiovascular: RRR, no significant murmur Gastrointestinal: soft, no distention, positive bowel sounds Musculoskeletal: no edema, pulses present Neurological: non-focal, moves all 4 limbs Psychiatric: normal affect, A&O x 3 Dx/Plan (1) Acute diverticulitis Code(s): K57.92 - DVTRCLI OF INTEST, PART UNSP, W/O PERF OR ABSCESS W/O BLEED Status: Acute Comment: sigmoid (2) Sepsis Code(s): A41.9 - SEPSIS, UNSPECIFIED ORGANISM Status: Acute Qualifiers: Sepsis type: sepsis due to unspecified organism Qualified Code(s): A41.9 - Sepsis, unspecified organism (3) Obesity (BMI 30-39.9) Code(s): E66.9 - OBESITY, UNSPECIFIED Status: Chronic (4) Tobacco abuse Code(s): Z72.0 - TOBACCO USE Status: Chronic - Plan is on cipro, flagyl, morphine prn -: nebs prn -: to amb as tolerated -: milk of mag x1 for constipation -: dc plan in 24hrs if stable * . Review of Systems - Medications/Allergies Allergies/Adverse Reactions: Allergies Allergy/AdvReac Type Severity Reaction Status Date / Time No Known Allergies Allergy Verified 04/17/18 20:08 Medications: Current Medications Acetaminophen (Tylenol) 650 mg PO Q4H PRN PRN Reason: Headache/Fever/Mild Pain (1-3) Albuterol Sulfate (Albuterol Sulfate) 1.25 mg NEB [id number] [facility] Last Admin: 04/19/18 07:39 Dose: 1.25 mg Bisacodyl (Dulcolax) 10 mg [place] Q8H PRN PRN Reason: Constipation Docusate Sodium (Colace) 100 mg PO BID [facility] Last Admin: 04/19/18 08:26 Dose: 100 mg Famotidine (Pepcid) 20 mg SLOW IVP Q12HR [facility] Last Admin: 04/19/18 08:25 Dose: 20 mg Sodium Chloride (Normal Saline 0.9%) 1,000 mls @ 75 mls/hr IV .[id number] [facility] Last Admin: 04/19/18 00:16 Dose: 1,000 mls Ciprofloxacin/Dextrose 400 mg/ (Device) 200 mls @ 200 mls/hr IVPB 1200,2359 [facility] Last Admin: 04/19/18 10:55 Dose: 200 mls Metronidazole 500 mg/ Device 100 mls @ 100 mls/hr IVPB Q8HR [facility] Last Admin: 04/19/18 05:24 Dose: 100 mls Magnesium Hydroxide (Milk Of Magnesium) 30 ml PO NOW [facility] Stop: 04/19/18 12:15 Last Admin: 04/19/18 10:39 Dose: 30 ml Morphine Sulfate (Morphine) 2 mg SLOW IVP Q4H PRN PRN Reason: PAIN 7-10 Last Admin: 04/18/18 15:42 Dose: 2 mg Ondansetron HCl (Zofran) 4 mg IVP Q6H PRN PRN Reason: Nausea/Vomiting Polyethylene Glycol (Miralax) 17 gm PO DAILY [facility] Last Admin: 04/19/18 08:25 Dose: 17 gm Sodium Chloride (Flush - Normal Saline) 10 ml IVF PRN PRN PRN Reason: Saline Flush
[2018-04-19] MEDS ORDERED: Albuterol Sulfate 1.25 MG/3 ML NEB NEB PRN (19:39)
--- NOTE | 2018-04-19 20:19 | PRG ---
DATE OF SERVICE: 04/19/2018 SUBJECTIVE: The patient feels much better today. The pain is much less. He denies nausea or vomiting. He did have one small bowel movement his morning with milk of magnesia given yesterday. OBJECTIVE: VITAL SIGNS: Temperature is 98.0, blood pressure 130/87, and pulse of 74. GENERAL: He is alert, conversant, and in no distress. HEENT: Anicteric sclerae. NECK: Supple. CV: Shows normal S1 and S2 with regular rate and rhythm. CHEST: Shows regular breath sounds. Clear to auscultation. ABDOMEN: Protuberant, but soft. There is essentially no tenderness to palpation. He has active bowel sounds. EXTREMITIES: No edema. LABORATORY DATA: None. ASSESSMENT: Acute uncomplicated diverticulitis by CT, clinically much better with resolving abdominal pain. His exam is benign. He is afebrile. RECOMMENDATIONS: 1. Advance diet. 2. One more dose of milk of magnesia. 3. If the patient does well, can discharge to home tomorrow on Cipro and metronidazole x10 days. Job ID: [id number]
[2018-04-20] MEDS: metroNIDAZOLE 500 MG in Premix Bag 1 BAG IVPB SCH ×2 (05:05→12:53)
[2018-04-20 05:06] LABS: #Eosinphils 0.2 thou/uL (0.0-0.7); #Lymphocytes 1.2 thou/uL (1.20-3.40); #Monocytes 0.6 thou/uL (0.11-0.59); #Neutrophils 2.7 thou/uL (1.40-6.50); %Basophils 0.7 % (0.0-1.0); %Eosinophils 5.1 % (0.0-10.0); %Lymphocytes 25.6 % (21.0-51.0); %Monocytes 12.3 % (0.0-10.0); %Neutrophils 56.3 % (42.0-75.0); Mean Corpuscular Volume 87.8 fL (78.0-98.0); Mean Platelet Volume 9.9 fL (7.4-10.4); Platelet Count 266 thou/uL (130-400); Red Blood Cell (RBC) Count 4.84 mill/uL (4.70-6.10); White Blood Cell (WBC) Count 4.8 thou/uL (4.8-10.8)
[2018-04-20] MEDS: Sodium Chloride 0.9% 1,000 ML IV SCH (05:06)
[2018-04-20 05:19] LABS: ALT (SGPT) 16 U/L (8-55); AST (SGOT) 15 U/L (5-34); Albumin 3.4 g/dL (3.5-5.0); Alkaline Phosphatase 87 U/L (40-150); Anion Gap 10 mmol/L (10-20); BUN (Urea Nitrogen) 9 mg/dL (8.9-20.6); Bilirubin, Total 0.2 mg/dL (0.2-1.2); Calc. Creatinine Clearance 193 mL/min (70-130); Calcium 9.2 mg/dL (7.8-10.44); Carbon Dioxide 26 mmol/L (22-29); Chloride 106 mmol/L (98-107); Estimated GFR-MDRD Greater than 90; Globulin 3.7 g/dL (2.4-3.5); Glucose 119 mg/dL (70-105); Protein, Total 7.1 g/dL (6.0-8.3); Sodium 138 mmol/L (136-145)
[2018-04-20] MEDS: Polyethylene Glycol 3350 17 GM Packet PO SCH (08:05)
[2018-04-20] MEDS: Famotidine/PF 20 mg/2ml Vial SLOW IVP SCH (08:05)
[2018-04-20] MEDS: Docusate 100 MG CAP PO SCH (08:05)
--- NOTE | 2018-04-20 08:47 | PRG ---
DATE OF SERVICE: 04/20/2018 SUBJECTIVE: The patient feels fine, reporting minimal lower abdominal pain. There is no nausea or vomiting. He tolerated regular diet for dinner last night. OBJECTIVE: VITAL SIGNS: Temperature 98.0, blood pressure 143/87, and pulse of 73. GENERAL: He is alert, oriented, in no distress. HEENT: Anicteric sclerae. NECK: Supple. CV: Shows normal S1 and S2. Regular rate and rhythm. CHEST: Shows breath sounds. ABDOMEN: Protuberant, but no distension, soft with minimal tenderness to palpation in the right lower quadrant. There is active bowel sounds. EXTREMITIES: Shows no edema. LABORATORY DATA: WBCs 4.8, hemoglobin 14.0, and platelet count of 266. Sodium 138, potassium 4.0, chloride 106, CO2 of 26, creatinine 0.84. LFTs are normal. ASSESSMENT: Acute uncomplicated sigmoid diverticulitis, clinically much improved since admission. The patient is without fever, no leukocytes. He is tolerating regular diet. RECOMMENDATIONS: 1. The patient is able to be discharged to home on Cipro and metronidazole x10 days. 2. Followup in GI Clinic in 2 to 3 weeks. Job ID: [id number]
--- NOTE | 2018-04-20 12:20 | PDOC.PN ---
- Subjective Encounter Start Date: 04/20/18 Encounter Start Time: 09:15 Subjective: abd pain is better, no cough -: is tolerating oral solid diet -: had bm last evening - Objective Resuscitation Status - Order Detail: 04/17/18 23:36 Resuscitation Status Routine Resuscitation Status: FULL: Full Resuscitation MAR Reviewed: Yes Vital Signs & Weight: Vital Signs (12 hours) Temp Pulse Resp BP Pulse Ox 04/20/18 08:17 70 96 04/20/18 08:00 94 L 04/20/18 07:24 98.0 F 73 20 143/87 H 91 L 04/20/18 04:50 82 16 96 Weight Weight 263 lb I&O: 04/19/18 04/20/18 04/21/18 06:59 06:59 06:59 Intake Total 4390 4900 Balance 4390 4900 Result Diagrams: 04/20/18 04:37 04/20/18 04:37 Phys Exam - Physical Examination HEENT: PERRLA, moist MMs Neck: no JVD, supple Respiratory: no wheezing, no rales Cardiovascular: RRR, no significant murmur Gastrointestinal: soft, non-tender, no distention, positive bowel sounds Musculoskeletal: no edema, pulses present Neurological: non-focal, moves all 4 limbs Psychiatric: normal affect, A&O x 3 Dx/Plan (1) Acute diverticulitis Code(s): K57.92 - DVTRCLI OF INTEST, PART UNSP, W/O PERF OR ABSCESS W/O BLEED Status: Acute Comment: sigmoid (2) Sepsis Code(s): A41.9 - SEPSIS, UNSPECIFIED ORGANISM Status: Resolved Qualifiers: Sepsis type: sepsis due to unspecified organism Qualified Code(s): A41.9 - Sepsis, unspecified organism (3) Obesity (BMI 30-39.9) Code(s): E66.9 - OBESITY, UNSPECIFIED Status: Chronic (4) Tobacco abuse Code(s): Z72.0 - TOBACCO USE Status: Chronic - Plan hemostable -: dc pt home on cipro, flagyl, bentyl prn -: to g/u with in 4 weeks * .
[2018-04-20 14:19] VITALS: BP 141/89; TEMP 98.4
--- NOTE | 2018-04-20 21:09 | DIS ---
DATE OF ADMISSION: 04/17/2018 DATE OF DISCHARGE: 04/20/2018 PRIMARY DISCHARGE DIAGNOSIS: Acute sigmoid diverticulitis with sepsis, resolving. SECONDARY DISCHARGE DIAGNOSES: 1. Obesity. 2. Tobacco abuse. PROCEDURES: Procedures done during hospitalization; blood cultures x2, no growth. CT of the abdomen and pelvis done on the day of admission showed sigmoid diverticulitis with pericolonic inflammatory stranding involving the sigmoid colon. The suggestion of reactive ileus involving small bowel seen, fatty liver. Chest x-ray done showed no acute abnormality. H and H of 14 and 42, and platelet count 266 on the day of discharge. Lipase was 8. BUN 9 and creatinine 0.8. DISCHARGE MEDICATIONS: 1. Ciprofloxacin 500 mg p.o. twice daily for 10 days. 2. Flagyl 500 mg p.o. three times daily for 10 days. 3. Colace 100 mg p.o. twice daily. 4. Bentyl 20 mg p.o. four times daily p.r.n. for abdominal pain. ALLERGIES: NO KNOWN DRUG ALLERGIES. INPATIENT CONSULT: Dr. Brooks for Gastroenterology. DISCHARGE PLAN: The patient is to follow up with Dr. Brooks in 2 to 3 weeks and primary care physician in 1 week. BRIEF COURSE: The patient initially came to ER with complaints of severe abdominal pain. Initial CAT scan done showed findings of sigmoid diverticulitis. He was initially kept n.p.o. and was placed on IV antibiotics. He has had consultation with Dr. Brooks for Gastroenterology. The patient was slowly weaned into liquid diet and solid food prior to discharge. His abdominal pain at the time of discharge is resolving. He has been able to tolerate oral diet and is ambulating in the hallway. He needs to continue 10 more days of antibiotics and follow up with Dr. Brooks for likely colonoscopy in 2 to 3 weeks. He also need to follow up with his primary care physician in 1 week. Please see [id number] documentation on [facility] for the day of discharge. Job ID: [id number] [facility]
== END 2018-04-20 13:45 | disposition home or self-care (01) | DRG 872 ==
LOC: ERS 16:06 → T4-A 19:41
PROVIDERS: ADMIT Internal Medicine; ATTEND Internal Medicine
DX: A41.9 Sepsis, unspecified organism (principal); K57.32 Diverticulitis of large intestine without perforation or abscess without bleeding; F17.210 Nicotine dependence, cigarettes, uncomplicated; E66.9 Obesity, unspecified; Z68.38 Body mass index [BMI] 38.0-38.9, adult; Z86.14 Personal history of Methicillin resistant Staphylococcus aureus infection
CPT/HCPCS: 36415; 80048; 80053; 85025; 94640; 96361; 96374; 96375; J0744; J2270; J2405; S0028

== ENCOUNTER 2020-03-11 12:06 | Inpatient (IN) | payer OTHER, SELFPAY ==
--- NOTE | 2020-03-11 14:08 | HP ---
PRIMARY CARE PHYSICIAN: [facility]. REASON FOR ADMISSION: Acute diverticulitis. HISTORY OF PRESENT ILLNESS: This is a 44-year-old male who has a history of diverticulitis in the past, who presented to emergency room with complaint of lower abdominal pain and suprapubic pain as well as left lower quadrant pain started on Monday and keep getting worse. The patient reports that he visited his PCP, who did urine test, which was negative for urinary infection. His pain was keep getting worse and he was feeling subjective feverish today. He denies any hematochezia or melena. He denies any nausea or vomiting. The patient reports that he has history of diverticulitis in the past and subsequently he had colonoscopy. Pain was pretty much constant about 8/10 in intensity. The patient had CT of abdomen and pelvis, which showed diverticulitis and subsequently, this patient was transferred from [facility] to our hospital for evaluation. REVIEW OF SYSTEMS: All review of systems reviewed with him and negative except as mentioned in HPI. PAST MEDICAL HISTORY: 1. Diabetes type 2. 2. Hypertension. 3. Morbid obesity. PAST SURGICAL HISTORY: 1. Carpal tunnel surgery on both sides. 2. Elbow surgery. 3. Back surgery. PAST PSYCHIATRIC HISTORY: Reviewed and negative. SOCIAL HISTORY: The patient drinks alcohol socially. He smokes about 1 pack per day. He is working in construction. ALLERGIES: NO KNOWN DRUG ALLERGIES. CURRENT HOME MEDICATIONS: 1. Metformin 500 mg twice daily. 2. Losartan 25 mg p.o. daily. EMERGENCY ROOM COURSE: The patient is given morphine 4 mg, Zosyn, IV fluid, vancomycin 2 g, Toradol, and Zofran. PHYSICAL EXAMINATION: VITAL SIGNS: On arrival, blood pressure 132/106, pulse 107, respiratory rate 20, temperature 100.6, saturation 98% on room air. Weight 120 kg. GENERAL: The patient is currently tachycardic, hypertensive, moderate distress due to pain. HEAD: Normocephalic, atraumatic. EYES: Pupils are round and reactive to light. Extraocular muscle intact. ENT: Oropharynx within normal limits. Moist mucous membranes. No oral lesions. No pharyngeal erythema. No exudate. NECK: Supple. No JVD. No meningeal signs of irritation. LUNGS: Clear to auscultation without any rhonchi or rales. CARDIAC: S1 and S2. Regular, tachycardia. No murmur. No gallop. No rub. ABDOMEN: Soft, diffuse tenderness noted. The patient does have rebound sign as well as peritoneal sign in lower quadrant. EXTREMITIES: Upper extremities; passive movement of all joints are normal. Lower extremity; no edema, good distal pulsation. SKIN: No skin rash. HEMATOLOGICAL: No lymphadenopathy. NEUROLOGIC: Nonfocal examination. SIGNIFICANT LABORATORY AND DIAGNOSTIC DATA: CBC; WBC 14.7, hemoglobin 16.2, platelet 261 with left shift. BMP; sodium 134, potassium 3.7, chloride 99, carbon dioxide 26, BUN 12, creatinine 1.0, glucose 129, calcium is 9.5, lactic acid 1.3. LFT; AST 13, ALT 15, alkaline phosphatase 99, albumin 4.2, lipase 9. Urinalysis normal. CT of abdomen and pelvis done in the emergency room, which showed inflammatory change involving mid sigmoid colon consistent with diverticulitis. There is small focus of extraluminal gas within this inflammatory process. No fluid or abscess collection at this point. ASSESSMENT AND PLAN: 1. Acute diverticulitis, sigmoid colon with extraluminal gas. The patient has leukocytosis and complicated diverticulitis. We will keep him as inpatient status. The patient will be given vancomycin and Zosyn for now, we will follow up on blood culture results. We will keep him n.p.o. and continue with IV fluid. If blood culture remains negative, then we will discontinue vancomycin and continue with Zosyn only. We are giving vancomycin because of his previous history of bacteremia. We will control his pain with morphine, General Surgery will be consulted for their opinion. At this point, the patient does not need any surgery, but hoping that with antibiotic therapy, his condition will improve. 2. Diabetes type 2. We will continue with insulin as per sliding scale protocol, we will check hemoglobin A1c. 3. Hypertension. We will start losartan 25 mg p.o. daily. 4. Deep venous thrombosis prophylaxis, on Lovenox 40 mg subcu daily. 5. Gastrointestinal prophylaxis, on Pepcid 20 mg p.o. twice daily. 6. Code status: The patient is full code. 7. Disposition plan: Based on clinical course. We are expecting the patient to stay in hospital more than 2 midnights. Plan of care discussed with the patient in detail. Job ID: [id number]
[2020-03-11] MEDS ORDERED: Ondansetron ODT 4 MG TAB SL PRN (16:15)
[2020-03-11] MEDS ORDERED: Ondansetron PF 4 MG/2 ML Vial IVP PRN ×2 (16:15→16:35)
[2020-03-11] MEDS ORDERED: Sodium Chloride 0.9% 1,000 ML IV SCH (16:15)
[2020-03-11] MEDS ORDERED: Acetaminophen 325 MG TAB PO PRN ×2 (16:15→16:35)
[2020-03-11] MEDS ORDERED: Zolpidem Tartrate 5 MG TAB PO PRN (16:35)
[2020-03-11] MEDS ORDERED: Loratadine 10 MG TAB PO PRN (16:35)
[2020-03-11] MEDS ORDERED: Guaifenesin DM 100-10/5 ML UDCUP PO PRN (16:35)
[2020-03-11] MEDS ORDERED: Calcium Carbonate 500 MG ChewTAB PO PRN (16:35)
[2020-03-11] MEDS ORDERED: Dextrose 50% Abboject 50 ML SYRINGE SLOW IVP PRN (16:35)
[2020-03-11] MEDS ORDERED: Bisacodyl 10 MG SUPP PR PRN (16:35)
[2020-03-11] MEDS ORDERED: Dextrose 5% in Water 1,000 ML IV PRN (16:35)
[2020-03-11] MEDS ORDERED: Loperamide HCl 2 MG CAP PO PRN (16:35)
[2020-03-11] MEDS ORDERED: HumaLOG 300 UNITS/3 ML VIAL SC PRN ×2 (16:35)
[2020-03-11] MEDS ORDERED: Sodium Chloride 0.65% Nasal 44 ML BOT EA NARE PRN (16:35)
[2020-03-11] MEDS ORDERED: Labetalol HCl 100 MG/20 ML VIAL SLOW IVP PRN (16:35)
[2020-03-11] MEDS ORDERED: hydrALAZINE 20 MG/ML VIAL SLOW IVP PRN (16:35)
[2020-03-11] MEDS ORDERED: Cepastat Lozenges 1 LOZ PO PRN (16:35)
[2020-03-11] MEDS ORDERED: Ondansetron ODT 4 MG TAB PO PRN (16:35)
[2020-03-11 17:04] VITALS: BMI 39.1
[2020-03-11] MEDS: Morphine 4 MG/ML VIAL SLOW IVP PRN (18:38)
[2020-03-11] MEDS: Sodium Chloride 0.9% 1,000 ML IV SCH (18:38)
[2020-03-11] MEDS: Piperacillin/Tazobactam 4.5 GM in Sodium Chloride 0.9% 100 ML IVPB SCH (20:31)
[2020-03-11] MEDS: Famotidine 20 MG TAB PO SCH (20:33)
[2020-03-11] MEDS: Vancomycin 1.5 GRAM/300 ML BAG 1.5 GM in Premix Bag 1 BAG IVPB SCH (21:15)
[2020-03-12] MEDS: Morphine 4 MG/ML VIAL SLOW IVP PRN ×5 (00:50→16:58)
[2020-03-12] MEDS: Piperacillin/Tazobactam 4.5 GM in Sodium Chloride 0.9% 100 ML IVPB SCH ×5 (01:57→23:11)
[2020-03-12] MEDS: Vancomycin 1.5 GRAM/300 ML BAG 1.5 GM in Premix Bag 1 BAG IVPB SCH ×3 (04:11→21:00)
[2020-03-12] MEDS: Sodium Chloride 0.9% 1,000 ML IV SCH ×3 (05:08→21:01)
[2020-03-12 05:55] LABS: #Eosinphils 0.1 thou/uL (0.0-0.7); #Lymphocytes 1.1 thou/uL (1.20-3.40); #Monocytes 0.8 thou/uL (0.11-0.59); #Neutrophils 8.1 thou/uL (1.40-6.50); %Basophils 0.2 % (0.0-1.0); %Eosinophils 1.2 % (0.0-10.0); %Lymphocytes 11.1 % (21.0-51.0); %Monocytes 8.1 % (0.0-10.0); %Neutrophils 79.4 % (42.0-75.0); Hemoglobin 13.2 g/dL (14.0-18.0); Mean Corpuscular HGB CONC 32.3 g/dL (32.0-36.0); Mean Corpuscular Hemoglobin 28.7 pg (27.0-31.0); Mean Corpuscular Volume 88.7 fL (78.0-98.0); Mean Platelet Volume 10.3 fL (7.4-10.4); Platelet Count 203 thou/uL (130-400); RBC Distribution Width 12.4 % (11.5-14.5); White Blood Cell (WBC) Count 10.2 thou/uL (4.8-10.8)
[2020-03-12 06:12] LABS: ALT (SGPT) 15 U/L (8-55); AST (SGOT) 11 U/L (5-34); Albumin 3.4 g/dL (3.5-5.0); Alkaline Phosphatase 88 U/L (40-110); Anion Gap 14 mmol/L (10-20); BUN (Urea Nitrogen) 16 mg/dL (8.9-20.6); Bilirubin, Total 0.9 mg/dL (0.2-1.2); Calc. Creatinine Clearance 169 mL/min (70-130); Calcium 8.5 mg/dL (7.8-10.44); Carbon Dioxide 21 mmol/L (22-29); Chloride 103 mmol/L (98-107); Estimated GFR-MDRD 86; Globulin 3.4 g/dL (2.4-3.5); Glucose 80 mg/dL (70-105); Potassium 3.7 mmol/L (3.5-5.1); Protein, Total 6.8 g/dL (6.0-8.3); Sodium 134 mmol/L (136-145)
[2020-03-12] MEDS: Enoxaparin Sodium 40 MG/0.4 ML SYRINGE SC SCH (08:23)
[2020-03-12] MEDS: Famotidine 20 MG TAB PO SCH ×2 (08:23→21:00)
[2020-03-12] MEDS ORDERED: FLU VACC QS2020-21(6MOS UP)/PF 60 MCG/0.5 ML SYRINGE IM ONE (09:00)
[2020-03-12] MEDS ORDERED: Losartan 25 MG TAB PO SCH (09:00)
--- NOTE | 2020-03-12 09:34 | PDOC.HOSPP ---
- Subjective Encounter Date: 03/12/20 Encounter Time: 08:45 Subjective: Patient seen and examined bedside today, no overnight event, no new complaint, last night he had low-grade fever, but his abdominal pain has been improving, he does not have hematochezia or any bowel movement since he is arrived in the hospital. - Objective Vital Signs & Weight: Vital Signs (12 hours) Temp Pulse Resp BP BP Pulse Ox 03/12/20 07:43 99.2 F 87 16 131/82 92 L 03/12/20 04:00 100.6 F H 93 18 126/81 93 L 03/12/20 00:00 99.9 F H 95 18 124/73 92 L Weight Weight 265 lb Result Diagrams: 03/12/20 05:40 03/12/20 05:40 Additional Labs: Accuchecks 03/12/20 03/11/20 05:32 19:40 POC Glucose 77 98 Hospitalist ROS - Review of Systems Constitutional: reports: fever. denies: chills, sweats, weakness, malaise, other ENT: denies: ear pain, ear discharge, nose pain, nose discharge, nose congestion, mouth pain, mouth swelling, throat pain, throat swelling, other Respiratory: denies: cough, dry, shortness of breath, hemoptysis, SOB with excertion, pleuritic pain, sputum, wheezing, other Cardiovascular: denies: chest pain, palpitations, orthopnea, paroxysmal noc. dys pnea, edema, light headedness, other Gastrointestinal: reports: abdominal pain. denies: nausea, vomiting, diarrhea, constipation, melena, hematochezia, other Genitourinary: denies: dysuria, frequency, incontinence, hematuria, retention, other Musculoskeletal: denies: neck pain, shoulder pain, arm pain, back pain, hand pain, leg pain, foot pain, other - Medication Medications: Active Medications Generic Name Dose Route Start Last Admin Trade Name Freq PRN Reason Stop Dose Admin Enoxaparin Sodium 40 mg 03/12/20 09:00 03/12/20 08:23 Enoxaparin Sodium 40 Mg/0.4 Ml Syringe SC 40 mg 0900 OMAR Administration Famotidine 20 mg 03/11/20 21:00 03/12/20 08:23 Famotidine 20 Mg Tab PO 20 mg BID OMAR Administration Sodium Chloride 1,000 mls @ 75 mls/hr 03/11/20 16:35 03/12/20 05:08 Normal Saline 0.9% IV Not Given .[id number] OMAR Piperacillin Sod/Tazobactam 100 mls @ 200 mls/hr 03/11/20 20:00 03/12/20 08:24 Sod 4.5 gm/ Sodium Chloride IVPB 100 mls 0200,0800,1400,2000 OMAR Administration Vancomycin HCl 1.5 gm/ Device 300 mls @ 200 mls/hr 03/11/20 20:00 03/12/20 04:11 IVPB 300 mls 0400,1200,2000 OMAR Administration Losartan Potassium 50 mg 03/12/20 09:00 03/12/20 08:23 Losartan 25 Mg Tab PO 50 mg DAILY OMAR Administration Morphine Sulfate 4 mg 03/11/20 16:35 03/12/20 08:21 Morphine 4 Mg/Ml Vial SLOW IVP 4 mg Q4H PRN Administration Severe Pain (7-10) - Exam General Appearance: NAD, awake alert Eye: PERRL, anicteric sclera ENT: normocephalic atraumatic, no oropharyngeal lesions Neck: supple, symmetric, no JVD, no thyromegaly Heart: RRR, no murmur, no gallops, no rubs, normal peripheral pulses Respiratory: CTAB, no wheezes, no rales, no ronchi Gastrointestinal: soft, non-distended, normal bowel sounds, no palpable masses Gastrointestinal - other findings: Mild left lower quadrant discomfort Extremities: no clubbing, no edema Skin: normal turgor, no lesions Neurological: no focal deficits Musculoskeletal: normal tone, normal strength Psychiatric: normal affect, normal behavior, A&O x 3 Hosp A/P (1) Acute diverticulitis Code(s): K57.92 - DVTRCLI OF INTEST, PART UNSP, W/O PERF OR ABSCESS W/O BLEED Status: Acute Plan: Acute diverticulitis of sigmoid colon (2) Obesity (BMI 30-39.9) Code(s): E66.9 - OBESITY, UNSPECIFIED Status: Chronic (3) Tobacco abuse Code(s): Z72.0 - TOBACCO USE Status: Chronic (4) Hypertension Code(s): I10 - ESSENTIAL (PRIMARY) HYPERTENSION Status: Chronic Qualifiers: Hypertension type: essential hypertension Qualified Code(s): I10 - Essential (primary) hypertension (5) Diabetes type 2, controlled Code(s): E11.9 - TYPE 2 DIABETES MELLITUS WITHOUT COMPLICATIONS Status: Chronic Qualifiers: Diabetes mellitus residential insulin use: with ferry terminal supervisor use Diabetes mellitus complication status: without complication Qualified Code(s): E11.9 - Type 2 diabetes mellitus without complications; Z79.4 - local company intermodal truck driver (current) use of insulin - Plan old records reviewed/req, continue antibiotics Plan Patient has clinical improvement, continue current vancomycin and Zosyn, follow- up on culture result, if blood culture is negative then will discontinue vancomycin We will start clear liquid diet later on today Continue pain control Continue his home medication
[2020-03-12 11:44] LABS: Vancomycin, Trough 16.1 ug/mL
[2020-03-12 13:16] LABS: SARS-CoV-2 MS2 Positive; SARS-CoV-2 N Gene Negative; SARS-CoV-2 S Gene Negative; SARS-CoV-2 by NAA Not Detected (NotDetected); SARS-CoV-2 orf1ab Negative
[2020-03-12] MEDS: HYDROcodone/Acetaminophen 5/325 mg Tablet PO PRN (21:06)
[2020-03-13] MEDS: Piperacillin/Tazobactam 4.5 GM in Sodium Chloride 0.9% 100 ML IVPB SCH ×4 (03:30→21:35)
[2020-03-13] MEDS: HYDROcodone/Acetaminophen 5/325 mg Tablet PO PRN ×4 (03:33→18:43)
[2020-03-13] MEDS: Vancomycin 1.5 GRAM/300 ML BAG 1.5 GM in Premix Bag 1 BAG IVPB SCH ×2 (04:45→11:56)
[2020-03-13] MEDS: Famotidine 20 MG TAB PO SCH ×2 (08:57→19:59)
[2020-03-13] MEDS: Enoxaparin Sodium 40 MG/0.4 ML SYRINGE SC SCH (08:58)
[2020-03-13] MEDS: Losartan 25 MG TAB PO SCH (08:58)
[2020-03-13] MEDS: Sodium Chloride 0.9% 1,000 ML IV SCH ×3 (08:58→20:01)
[2020-03-13 11:41] LABS: Vancomycin, Trough 17.3 ug/mL
--- NOTE | 2020-03-13 13:16 | PDOC.HOSPP ---
- Subjective Encounter Date: 03/13/20 Encounter Time: 11:30 Subjective: Patient seen and examined. No new complaints. No overnight events - Objective Vital Signs & Weight: Vital Signs (12 hours) Temp Pulse Resp BP Pulse Ox 03/13/20 07:32 98.3 F 80 20 135/84 97 Weight Weight 265 lb I&O: 03/12/20 03/13/20 03/14/20 06:59 06:59 06:59 Intake Total 2970 Balance 2970 Result Diagrams: 03/12/20 05:40 03/12/20 05:40 Additional Labs: Accuchecks 03/12/20 16:35 POC Glucose 105 H Hospitalist ROS - Review of Systems ENT: denies: ear pain, ear discharge, nose pain, nose discharge, nose congestion, mouth pain, mouth swelling, throat pain, throat swelling, other Respiratory: denies: cough, dry, shortness of breath, hemoptysis, SOB with excertion, pleuritic pain, sputum, wheezing, other Cardiovascular: denies: chest pain, palpitations, orthopnea, paroxysmal noc. dyspnea, edema, light headedness, other Gastrointestinal: denies: nausea, vomiting, abdominal pain, diarrhea, constipation, melena, hematochezia, other Genitourinary: denies: dysuria, frequency, incontinence, hematuria, retention, other Musculoskeletal: denies: neck pain, shoulder pain, arm pain, back pain, hand pain, leg pain, foot pain, other - Medication Medications: Active Medications Generic Name Dose Route Start Last Admin Trade Name Freq PRN Reason Stop Dose Admin Hydrocodone Bitart/Acetaminophen 1 tab 03/11/20 16:35 03/13/20 08:58 Hydrocodone/Acetaminophen 5/325 Mg Tablet PO 1 tab Q4H PRN Administration Moderate Pain (4-6) Enoxaparin Sodium 40 mg 03/12/20 09:00 03/13/20 08:58 Enoxaparin Sodium 40 Mg/0.4 Ml Syringe SC Not Given 0900 OMAR Famotidine 20 mg 03/11/20 21:00 03/13/20 08:57 Famotidine 20 Mg Tab PO 20 mg BID OMAR Administration Sodium Chloride 1,000 mls @ 75 mls/hr 03/11/20 16:35 03/13/20 08:58 Normal Saline 0.9% IV Not Given .[id number] OMAR Piperacillin Sod/Tazobactam 100 mls @ 200 mls/hr 03/12/20 22:00 03/13/20 08:57 Sod 4.5 gm/ Sodium Chloride IVPB 100 mls 0400,1000,1600,2200 OMAR Administration Losartan Potassium 25 mg 03/13/20 09:00 03/13/20 08:58 Losartan 25 Mg Tab PO 25 mg DAILY OMAR Administration Morphine Sulfate 4 mg 03/11/20 16:35 03/12/20 16:58 Morphine 4 Mg/Ml Vial SLOW IVP 4 mg Q4H PRN Administration Severe Pain (7-10) - Exam General Appearance: NAD, awake alert Eye: PERRL, anicteric sclera ENT: normocephalic atraumatic, no oropharyngeal lesions Neck: supple, symmetric, no JVD, no thyromegaly Heart: RRR, no murmur, no gallops, no rubs, normal peripheral pulses Respiratory: CTAB, no wheezes, no rales, no ronchi Gastrointestinal: soft, non-tender, non-distended, normal bowel sounds Extremities: no cyanosis, no clubbing, no edema Skin: normal turgor, no lesions Neurological: no focal deficits Musculoskeletal: normal tone, normal strength, no muscle wasting Psychiatric: normal affect, normal behavior, A&O x 3 Hosp A/P (1) Acute diverticulitis Code(s): K57.92 - DVTRCLI OF INTEST, PART UNSP, W/O PERF OR ABSCESS W/O BLEED Status: Acute (2) Obesity (BMI 30-39.9) Code(s): E66.9 - OBESITY, UNSPECIFIED Status: Chronic (3) Tobacco abuse Code(s): Z72.0 - TOBACCO USE Status: Chronic (4) Hypertension Code(s): I10 - ESSENTIAL (PRIMARY) HYPERTENSION Status: Chronic Qualifiers: Hypertension type: essential hypertension Qualified Code(s): I10 - Essential (primary) hypertension (5) Diabetes type 2, controlled Code(s): E11.9 - TYPE 2 DIABETES MELLITUS WITHOUT COMPLICATIONS Status: Chronic Qualifiers: Diabetes mellitus prison insulin use: with watermelon inspector use Diabetes mellitus complication status: without complication Qualified Code(s): E11.9 - Type 2 diabetes mellitus without complications; Z79.4 - terminal gauger supervisor (current) use of insulin - Plan old records reviewed/req, continue antibiotics Plan dc vancomycin continue zosyn We will start full liquid diet later on today Continue pain control Continue his home medication
[2020-03-13] MEDS: Senokot S 8.6-50 MG TAB PO PRN (19:59)
[2020-03-14] MEDS: HYDROcodone/Acetaminophen 5/325 mg Tablet PO PRN ×4 (00:34→22:21)
[2020-03-14] MEDS: Piperacillin/Tazobactam 4.5 GM in Sodium Chloride 0.9% 100 ML IVPB SCH ×4 (04:33→22:21)
[2020-03-14] MEDS: Enoxaparin Sodium 40 MG/0.4 ML SYRINGE SC SCH (09:35)
[2020-03-14] MEDS: Losartan 25 MG TAB PO SCH (09:35)
[2020-03-14] MEDS: Famotidine 20 MG TAB PO SCH ×2 (09:35→19:37)
--- NOTE | 2020-03-14 10:37 | PDOC.HOSPP ---
- Subjective Encounter Date: 03/14/20 Encounter Time: 08:40 Subjective: Patient seen and examined. No new complaints. No overnight events - Objective Vital Signs & Weight: Vital Signs (12 hours) Temp Pulse Resp BP Pulse Ox 03/14/20 08:40 98.0 F 68 20 128/83 95 Weight Weight 265 lb I&O: 03/13/20 03/14/20 03/15/20 06:59 06:59 06:59 Intake Total 2970 2635 Balance 2970 2635 Result Diagrams: 03/12/20 05:40 03/12/20 05:40 Additional Labs: Accuchecks 03/14/20 05:01 POC Glucose 108 H Hospitalist ROS - Review of Systems ENT: denies: ear pain, ear discharge, nose pain, nose discharge, nose congestion , mouth pain, mouth swelling, throat pain, throat swelling, other Respiratory: denies: cough, dry, shortness of breath, hemoptysis, SOB with excertion, pleuritic pain, sputum, wheezing, other Cardiovascular: denies: chest pain, palpitations, orthopnea, paroxysmal noc. dyspnea, edema, light headedness, other Gastrointestinal: denies: nausea, vomiting, abdominal pain, diarrhea, constipation, melena, hematochezia, other Genitourinary: denies: dysuria, frequency, incontinence, hematuria, retention, other Musculoskeletal: denies: neck pain, shoulder pain, arm pain, back pain, hand pain, leg pain, foot pain, other - Medication Medications: Active Medications Generic Name Dose Route Start Last Admin Trade Name Freq PRN Reason Stop Dose Admin Hydrocodone Bitart/Acetaminophen 1 tab 03/11/20 16:35 03/14/20 04:35 Hydrocodone/Acetaminophen 5/325 Mg Tablet PO 1 tab Q4H PRN Administration Moderate Pain (4-6) Enoxaparin Sodium 40 mg 03/12/20 09:00 03/14/20 09:35 Enoxaparin Sodium 40 Mg/0.4 Ml Syringe SC 40 mg 0900 OMAR Administration Famotidine 20 mg 03/11/20 21:00 03/14/20 09:35 Famotidine 20 Mg Tab PO 20 mg BID OMAR Administration Piperacillin Sod/Tazobactam 100 mls @ 200 mls/hr 03/12/20 22:00 03/14/20 09:36 Sod 4.5 gm/ Sodium Chloride IVPB 100 mls 0400,1000,1600,2200 OMAR Administration Losartan Potassium 25 mg 03/13/20 09:00 03/14/20 09:35 Losartan 25 Mg Tab PO 25 mg DAILY OMAR Administration Morphine Sulfate 4 mg 03/11/20 16:35 03/12/20 16:58 Morphine 4 Mg/Ml Vial SLOW IVP 4 mg Q4H PRN Administration Severe Pain (7-10) Senna/Docusate Sodium 2 tab 03/11/20 16:35 03/13/20 19:59 Senokot S 8.6-50 Mg Tab PO 2 tab BID PRN Administration Constipation - Exam General Appearance: NAD, awake alert Eye: PERRL, anicteric sclera ENT: normocephalic atraumatic, no oropharyngeal lesions Neck: supple, symmetric, no JVD, no thyromegaly Heart: RRR, no murmur, no gallops, no rubs Respiratory: CTAB, no wheezes, no rales, no ronchi Gastrointestinal: soft, non-tender, non-distended, normal bowel sounds Extremities: no cyanosis, no clubbing Skin: normal turgor, no lesions Neurological: no focal deficits Musculoskeletal: normal tone, normal strength Psychiatric: normal affect, normal behavior, A&O x 3 Hosp A/P (1) Acute diverticulitis Code(s): K57.92 - DVTRCLI OF INTEST, PART UNSP, W/O PERF OR ABSCESS W/O BLEED Status: Acute (2) Obesity (BMI 30-39.9) Code(s): E66.9 - OBESITY, UNSPECIFIED Status: Chronic (3) Tobacco abuse Code(s): Z72.0 - TOBACCO USE Status: Chronic (4) Hypertension Code(s): I10 - ESSENTIAL (PRIMARY) HYPERTENSION Status: Chronic Qualifiers: Hypertension type: essential hypertension Qualified Code(s): I10 - Ess[place]ia l (primary) hypertension (5) Diabetes type 2, controlled Code(s): E11.9 - TYPE 2 DIABETES MELLITUS WITHOUT COMPLICATIONS Status: ron Qualifiers: Diabetes mellitus truck terminal manager insulin use: with detention use Diabetes mellitus complication status: without complication Qualified Code(s): E11.9 - Type 2 diabetes mellitus without complications; Z79.4 - long-term (current) use of insulin - Plan old records reviewed/req, continue antibiotics Plan Continue Zosyn today and will consider discharging him tomorrow, will advance to regular diet today
[2020-03-14] MEDS: Senokot S 8.6-50 MG TAB PO PRN (18:20)
[2020-03-15] MEDS: Piperacillin/Tazobactam 4.5 GM in Sodium Chloride 0.9% 100 ML IVPB SCH ×2 (04:24→09:36)
[2020-03-15] MEDS: HYDROcodone/Acetaminophen 5/325 mg Tablet PO PRN ×2 (04:26→09:31)
[2020-03-15 08:10] VITALS: BP 137/91; TEMP 97.9
[2020-03-15] MEDS: Enoxaparin Sodium 40 MG/0.4 ML SYRINGE SC SCH (09:30)
[2020-03-15] MEDS: Famotidine 20 MG TAB PO SCH (09:31)
[2020-03-15] MEDS: Losartan 25 MG TAB PO SCH (09:33)
[2020-03-15] MEDS: Senokot S 8.6-50 MG TAB PO PRN (09:34)
--- NOTE | 2020-03-15 11:07 | DIS ---
DATE OF ADMISSION: 03/11/2020 DATE OF DISCHARGE: 03/15/2020 PRIMARY CARE PHYSICIAN: [facility] Lianne. DISCHARGE DISPOSITION: Home. PRIMARY DISCHARGE DIAGNOSIS: Acute sigmoid diverticulitis. SECONDARY DISCHARGE DIAGNOSES: 1. Morbid obesity, BMI 39. 2. Hypertension. 3. Diabetes type 2. PRIMARY PROCEDURE/OPERATION: None. RADIOLOGICAL INVESTIGATION: Abdomen and pelvis CT scan, which was done at [facility] showed inflammatory changes in sigmoid colon consistent with diverticulitis. There is a small focus of extraluminal gas within this inflammatory process. SIGNIFICANT LABORATORY DATA: WBC 10.2, hemoglobin 13.2, and platelets 203. Sodium 134, potassium 3.7, BUN 16, and creatinine 0.95. LFT normal. COVID-19 negative. DISCHARGE MEDICATIONS: 1. Augmentin 875 mg twice daily for 11 more days. 2. Flagyl 500 mg p.o. q.8 hours hourly for 11 more days. 3. Metformin 500 mg daily. 4. Losartan 25 mg p.o. daily. CONTRAINDICATION: None. CODE STATUS: Full code. INPATIENT PREFORM MACHINE OPERATOR: None. ALLERGIES: NO KNOWN DRUG ALLERGIES. DISCHARGE PLAN: Posthospital, the patient will follow up with [facility] in 1 week. The patient is advised to make appointment with Gastroenterology for followup. HOSPITAL COURSE: A 44-year-old male who was admitted by me on March 11, 2020, please see my HPI for more details. The patient initially went to [facility] with lower abdominal pain. The patient was diagnosed with diverticulitis. The patient was having initially with mild leukocytosis. The patient was admitted and treated with vancomycin and Zosyn. Vancomycin was discontinued when culture was negative. We continued while in hospital with Zosyn. On discharge, we changed to Augmentin and Flagyl. By the time of discharge, the patient was not having any abdominal pain or any peritoneal sign. He was completely feeling much better. We have advanced diet slowly. While in the hospital, we have provided the patient education about diet and preventive measures for diverticulitis. The patient did not require any evaluation by General Surgery or any Gastroenterology as he will follow up with them as an outpatient basis. At this point, the patient is medically stable for discharge. PHYSICAL EXAMINATION: VITAL SIGNS: Today, temperature 97.9, pulse 80, respiratory rate 18, saturation 95%, and blood pressure 137/91. GENERAL: The patient is currently alert and awake. In no acute distress. HEENT: Head; normocephalic, atraumatic. NECK: Supple. No JVD. No meningeal signs of irritation. LUNGS: Clear to auscultation without any rhonchi or rales. CARDIAC: S1 and S2, regular. No murmur. No gallop. No rub. ABDOMEN: Soft, bowel sounds present, nontender, nondistended. No organomegaly. No mass. EXTREMITIES: No edema. NEUROLOGIC: Nonfocal examination. The patient is medically stable for discharge today. Job ID: [id number]
--- NOTE | 2020-03-18 06:42 | PQF ---
CLINICAL DOCUMENTATION CLARIFICATION FORM: Dear : Kosta Ortiz Date / Time:03/18/2020 06 Please exercise your independent, professional judgment in responding to the clarification form. Clinical indicators are provided on the bottom of this form for your review Please check appropriate box(es) to clarify if the following diagnosis has been ruled in our ruled out: Sepsis [ x ] Ruled in diagnosis [ ] Continue to treat [x ] Resolved [ ] Ruled out diagnosis [ ] Improving [ ] Cannot rule out diagnosis [ ] Other diagnosis [ ] Unable to determine Physician Signature: Date/Time: For continuity of documentation, please document condition throughout progress notes and discharge summary. Thank You. To be completed by CDI/Coding staff for physician review: Present Clinical Indicators - Signs / Symptoms / Labs Results and Location in Medical Record [x] WBC 10.2, Plt count 203, Neutrophils 79.4, Lymphocytes 11.1 Laboratory 03/12 [x] SIRS scoring: Yes, pt did meet criteria ED notes p2 03/11 [x] BP 107/56, Pulse 107, Resp 20, Temp 99.4 Vital signs 03/11 [x] Presenting from outside hospital with Diveticulitis and sepsis ED notes p 6 03/11 Present Risk Factors Results and Location in Medical Record [x] DM H&P p1 03/11 Dr Ortiz [x] HTN H&P p1 03/11 Dr Ortiz [x] Morbid obesity H&P p1 03/11 Dr Ortiz [x] Smoker H&P p1 03/11 Dr Ortiz [x] Acute diverticulitis H&P p1 03/11 Dr Ortiz Present Treatments Results and Location in Medical Record [x] IV Vancomycin 1.5 gm JUL 29 [x] IVF NS 1L JUL 29 [x] IV Zosyn 4.5 JUL 29 CDS/Automation Controls Expert Signature: Clau Muellerpaty Phone #: ext [phone] Date/Time: 03/18/202042 This is a permanent part of the Medical Record [facility]
== END 2020-03-15 10:48 | disposition home or self-care (01) | DRG 872 ==
LOC: ERS 12:06 → OBSVTOIN 13:26 → T4-B 13:26
PROVIDERS: ADMIT Internal Medicine; ATTEND Internal Medicine
DX: A41.9 Sepsis, unspecified organism (principal); K57.32 Diverticulitis of large intestine without perforation or abscess without bleeding; Z20.828 Contact with and (suspected) exposure to other viral communicable diseases; E66.01 Morbid (severe) obesity due to excess calories; I10 Essential (primary) hypertension; E11.9 Type 2 diabetes mellitus without complications; F17.210 Nicotine dependence, cigarettes, uncomplicated; Z68.39 Body mass index [BMI] 39.0-39.9, adult; Z79.899 Other long term (current) drug therapy; Z79.84 Long term (current) use of oral hypoglycemic drugs; Z23 Encounter for immunization
CPT/HCPCS: 36415; 36416; 80053; 80202; 85025; 87635; 90471; 90662; 99285; G0008; G0378; J1650; J2270; J2543; J3370; J3490; U0003